=== PATIENT | female | born 1935 | race Caucasian/White ===

== ENCOUNTER 2019-03-27 19:00 | Inpatient (IN) | payer MEDICARE, BC ==
[2019-03-27] MEDS ORDERED: Ondansetron PF 4 MG/2 ML Vial ONE (19:30)
[2019-03-27] MEDS ORDERED: Morphine 4 MG/ML VIAL ONE (19:30)
--- NOTE | 2019-03-27 19:52 | CT ---
CT BRAIN NONCONTRAST: DATE: 03/27/2019 HISTORY: 83-year-old female on anticoagulation therapy status post acute head trauma from fall. FINDINGS: There is no evidence of acute intra-axial or extra-axial hemorrhage. There is no midline shift or any other mass effect. There is no extra-axial fluid collection. There is no evidence of obstructive hydrocephalus. Calvarium is intact. There is diffuse brain parenchymal volume loss. There are low att enuation areas in the white matter. These are nonspecific, but in a patient of this age, they are probably chronic ischemic white matter changes due to microvascular atherosclerosis. Small old infarc tion of posterior aspect of right cerebellum. Smaller, tiny infarction, probably old, of contralateral left posterior inferior cerebellum. IMPRESSION: 1) No acute intracranial findings. 2) involutional changes and chronic ischemic white matter changes. 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
--- NOTE | 2019-03-27 19:56 | RAD ---
Radiograph left hip 2 views: DATE: 03/27/2019 Time: 7:42 PM HISTORY: 83-year-old female with traumatic left hip pain due to fall. FINDINGS: There is a subcapital left femoral neck fracture with superior lateral displacement of distal fragmen t. No dislocation. IMPRESSION: Acute, traumatic, displaced subcapital left femoral neck fracture.
[2019-03-27 20:07] LABS: #Basophils 0.1 thou/uL (0.0-0.2); #Eosinphils 0.1 thou/uL (0.0-0.7); #Lymphocytes 1.2 thou/uL (1.20-3.40); #Monocytes 0.7 thou/uL (0.11-0.59); #Neutrophils 8.3 thou/uL (1.40-6.50); %Basophils 0.7 % (0.0-1.0); %Eosinophils 0.5 % (0.0-10.0); %Lymphocytes 11.5 % (21.0-51.0); %Monocytes 6.4 % (0.0-10.0); %Neutrophils 80.9 % (42.0-75.0); Hemoglobin 12.1 g/dL (12.0-16.0); Mean Corpuscular HGB CONC 33.7 g/dL (32.0-36.0); Mean Corpuscular Hemoglobin 33.6 pg (27.0-31.0); Mean Corpuscular Volume 99.7 fL (78.0-98.0); Mean Platelet Volume 6.1 fL (7.4-10.4); Platelet Count 247 thou/uL (130-400); RBC Distribution Width 11.4 % (11.5-14.5); Red Blood Cell (RBC) Count 3.61 mill/uL (4.20-5.40); White Blood Cell (WBC) Count 10.2 thou/uL (4.8-10.8)
[2019-03-27] MEDS ORDERED: Fentanyl 100 MCG/2 ML VIAL ONE (20:16)
[2019-03-27 20:21] LABS: INR-International Normal Ratio 1.2; Prothrombin Time 15.6 SEC (12.0-14.7)
[2019-03-27 20:30] LABS: ALT (SGPT) 16 U/L (8-55); AST (SGOT) 24 U/L (5-34); Albumin 4.5 g/dL (3.4-4.8); Alkaline Phosphatase 54 U/L (40-150); Anion Gap 18 mmol/L (10-20); BUN (Urea Nitrogen) 36 mg/dL (9.8-20.1); Bilirubin, Total 0.4 mg/dL (0.2-1.2); Calc. Creatinine Clearance 0 mL/min (70-130); Calcium 9.8 mg/dL (7.8-10.44); Carbon Dioxide 22 mmol/L (23-31); Chloride 98 mmol/L (98-107); Estimated GFR-MDRD 37; Globulin 2.7 g/dL (2.4-3.5); Glucose 128 mg/dL (83-110); Potassium 4.4 mmol/L (3.5-5.1); Protein, Total 7.2 g/dL (6.0-8.3); Sodium 134 mmol/L (136-145)
[2019-03-27] MEDS ORDERED: HYDROmorphone 0.5 MG/0.5 ML SYRINGE ONE (20:45)
[2019-03-27] MEDS ORDERED: Ondansetron PF 4 MG/2 ML Vial IVP PRN (22:40)
[2019-03-27] MEDS ORDERED: hydrALAZINE 20 MG/ML VIAL SLOW IVP PRN (22:40)
[2019-03-27] MEDS ORDERED: Dextrose 50% Abboject 50 ML SYRINGE SLOW IVP PRN (22:40)
[2019-03-27] MEDS ORDERED: traMADol HCl 50 MG TAB PO PRN (22:40)
[2019-03-27] MEDS ORDERED: Ondansetron ODT 4 MG TAB PO PRN (22:40)
[2019-03-27] MEDS ORDERED: Dextrose 5% in Water 1,000 ML IV PRN (22:40)
[2019-03-27] MEDS ORDERED: Ketorolac Tromethamine 30 MG/ML VIAL IVP SCH (22:45)
--- NOTE | 2019-03-27 22:59 | HP ---
This is Chato Gunderson PA-C dictating a report for Bulmaro Jordan MD. ATTENDING SURGEON: Dr. Jordan. CONSULTATIONS: Orthopedics, Dr. Walker. HISTORY OF PRESENT ILLNESS: Patient is an 83-year-old woman, who was reportedly on her back porch when she stepped off it, lost her balance and landed on her left hip. Patient was able to summon help after short period of time and was eventually brought to the emergency department by ground EMS, where she underwent evaluation and on examination, was noted to have a left subcapital hip fracture, at which time we were asked to evaluate the patient for admission and obtain Orthopedic consultation. Per the patient's request, she is a known patient of Dr. Walker and he was requested and agreed to see the patient in consultation. Patient denied loss of consciousness or any syncopal events related to her fall. ALLERGIES: SULFA. PATIENT REPORTEDLY BREAKS OUT IN HIVES. CURRENT MEDICATIONS: 1. Diltiazem. 2. Furosemide. 3. [place] 7.5. 4. Lisinopril. 5. Multivitamin. 6. Eliquis. PAST MEDICAL HISTORY: Atrial fibrillation and hypertension. PAST SURGICAL HISTORY: Right knee replacement and back surgery. SOCIAL HISTORY: Patient denies drug, tobacco, or alcohol use. Lives independently at home alone. REVIEW OF SYSTEMS: A 10-point review of systems is negative, except as otherwise stated. PHYSICAL EXAMINATION: VITAL SIGNS: Blood pressure 172/99, heart rate 115, respirations 20, oxygen saturation 94% on 1 L via nasal cannula, and temperature is 99.2. GENERAL: The patient is resting comfortably in bed. She is awake, alert, and oriented x3. Suzanne Coma Scale is 15. HEENT: Head is normocephalic and atraumatic. Eyes, extraocular motion intact. PERRLA bilaterally. Ears are atraumatic without discharge. Nose is atraumatic without discharge. Oropharynx is clear. NECK: Nontender. Trachea is midline. CHEST: Clear to auscultation with good inspiratory and expiratory effort. HEART: Regular rate and rhythm. ABDOMEN: Soft, flat, and nontender with active bowel sounds. PELVIS: Stable with tenderness to palpation to the left hip consistent with her fracture. EXTREMITIES: Neurovascularly intact x4. LABORATORY FINDINGS: White blood cell count 10.2, hemoglobin 12.1, hematocrit 36.0, and platelets . Sodium 134, potassium 4.4, chloride 98, CO2 of 22, BUN 36, creatinine 1.35, and glucose 128. LFTs are unremarkable. PT 15.6 and INR 1.2. RADIOGRAPHIC REPORTS: CT of the brain without contrast shows no acute intracranial findings. Radiographs of the left hip show an acute traumatic displaced subcapital left femoral neck fracture. ASSESSMENT AND PLAN: 1. Status post ground level fall. 2. Left subcapital femoral neck fracture. 3. Acute pain secondary to above. 4. Hypertension. 5. History of atrial fibrillation, on Eliquis. PLAN: Will be to hold the patient's Eliquis. Make her n.p.o. after midnight. Admitted to the surgical floor for pain control; pulmonary toilet; gastritis, mechanical VTE prophylaxis. Postoperatively, we will do physical and occupational therapy and discuss likely rehab placement. The evaluation, examination, laboratory, and radiographic findings were discussed with Dr. Jordan in the emergency department. Job ID: [id number]
[2019-03-27] MEDS ORDERED: Famotidine 20 MG TAB PO SCH (23:00)
[2019-03-27] MEDS: Sodium Chloride 0.9% 1,000 ML IV SCH (23:17)
[2019-03-27] MEDS: Acetaminophen 1,000 MG in Premix Bag 1 BAG IVPB SCH (23:18)
[2019-03-27] MEDS: Cyclobenzaprine 10 MG TAB PO PRN (23:18)
[2019-03-28 00:26] LABS: Bilirubin Negative (Negative); Blood, Urine Large (Negative); Clarity CLEAR (Clear); Glucose, Urine (Dipstick) Negative (Negative); Leukocyte Negative (Negative); Nitrite Negative (Negative); Protein, Urine (Dipstick) Trace mg/dL (Neg-Trace); Specific Gravity, Urine 1.008 (1.002-1.036); Urobilinogen 0.2 mg/dL (0.2-1.0)
[2019-03-28 00:29] LABS: Bacteria/HPF None Seen HPF (None Seen); Hyaline Casts/LPF 0-3 HYALINE CAST LPF (0-3 Hyaline); Pathc Cast-AUWi Flag 0.13 (0-2.49); RBC/HPF GREATER THAN 50-TNTC HPF (0-3); Squamous Epithelial None Seen HPF (0-3); WBC/HPF 0-3 HPF (0-3)
[2019-03-28 00:34] LABS: Urine Culture Reflex No No
[2019-03-28 01:17] VITALS: BMI 27.3
[2019-03-28] MEDS: Morphine 2 MG/ML SYRINGE SLOW IVP PRN ×2 (02:05→04:40)
[2019-03-28 05:59] LABS: #Eosinphils 0.1 thou/uL (0.0-0.7); #Monocytes 0.7 thou/uL (0.11-0.59); #Neutrophils 8.8 thou/uL (1.40-6.50); %Basophils 0.5 % (0.0-1.0); %Eosinophils 0.7 % (0.0-10.0); %Lymphocytes 9.6 % (21.0-51.0); %Neutrophils 82.3 % (42.0-75.0); Mean Corpuscular HGB CONC 33.8 g/dL (32.0-36.0); Mean Platelet Volume 6.3 fL (7.4-10.4); Platelet Count 217 thou/uL (130-400); RBC Distribution Width 11.4 % (11.5-14.5); Red Blood Cell (RBC) Count 3.25 mill/uL (4.20-5.40); White Blood Cell (WBC) Count 10.6 thou/uL (4.8-10.8)
[2019-03-28 06:23] LABS: Anion Gap 12 mmol/L (10-20); BUN (Urea Nitrogen) 28 mg/dL (9.8-20.1); Calc. Creatinine Clearance 44 mL/min (70-130); Calcium 8.5 mg/dL (7.8-10.44); Carbon Dioxide 24 mmol/L (23-31); Chloride 103 mmol/L (98-107); Estimated GFR-MDRD 48; Glucose 102 mg/dL (83-110); Magnesium 1.9 mg/dL (1.6-2.6); Phosphorus 3.8 mg/dL (2.3-4.7); Potassium 4.3 mmol/L (3.5-5.1); Sodium 135 mmol/L (136-145)
[2019-03-28] MEDS: Ketorolac Tromethamine 30 MG/ML VIAL IVP SCH ×2 (07:16→14:52)
[2019-03-28] MEDS: Sodium Chloride 0.9% 1,000 ML IV SCH ×2 (08:01→14:54)
[2019-03-28] MEDS: Acetaminophen 1,000 MG in Premix Bag 1 BAG IVPB SCH ×3 (08:01→17:50)
[2019-03-28] MEDS ORDERED: Fentanyl 100 MCG/2 ML VIAL ONE (08:03)
[2019-03-28] MEDS ORDERED: Fleet Enema 133 ML BOT PR PRN (09:19)
[2019-03-28] MEDS ORDERED: Cepastat Lozenges 1 LOZ PO PRN (09:19)
[2019-03-28] MEDS ORDERED: Ondansetron ODT 4 MG TAB PO PRN (09:19)
[2019-03-28] MEDS ORDERED: Bisacodyl 10 MG SUPP PR PRN (09:19)
[2019-03-28] MEDS ORDERED: Milk Of Magnesia 30 ML UDCUP PO PRN (09:19)
[2019-03-28] MEDS ORDERED: Ondansetron PF 4 MG/2 ML Vial IVP PRN (09:19)
[2019-03-28] MEDS ORDERED: HYDROcodone/Acetaminophen 7.5/325 mg Tablet PO PRN (09:21)
[2019-03-28] MEDS ORDERED: Bupivacaine HCl 0.5%/Epinephrine 1:200,000/PF 30 ml Vial ONE (09:42)
[2019-03-28] MEDS ORDERED: Neomycin-Polymyxin 1 ML AMP ONE (10:15)
[2019-03-28] MEDS ORDERED: Rocuronium Bromide 10 MG/ML (10ML VIAL) ONE (10:24)
[2019-03-28] MEDS ORDERED: Glycopyrrolate 0.2 MG/ML 5 ML SYRINGE ONE (10:24)
[2019-03-28] MEDS ORDERED: Ondansetron PF 4 MG/2 ML Vial ONE (10:24)
[2019-03-28] MEDS ORDERED: PROPOFOL 200 MG/20 ML VIAL ONE (10:24)
[2019-03-28] MEDS ORDERED: Promethazine HCl 25 MG/ML VIAL SLOW IVP PRN (11:18)
[2019-03-28] MEDS ORDERED: Morphine Sulfate 2 MG/ML SYRINGE SLOW IVP PRN (11:18)
[2019-03-28] MEDS ORDERED: Ondansetron HCl/PF 4 MG/2 ML Vial IVP PRN (11:18)
[2019-03-28] MEDS ORDERED: Promethazine HCl 25 MG/ML VIAL IM PRN (11:18)
[2019-03-28] MEDS ORDERED: Promethazine HCl 25 MG/ML VIAL ONE (11:23)
--- NOTE | 2019-03-28 12:00 | RAD ---
XR Hip Lt 2-3 View History: [Hip replacement] Comparison: Radiographs prior day Findings: Satisfactory appearance left hip arthroplasty. Expected postoperative gas and edema. Impression: Satisfactory postoperative appearance.
--- NOTE | 2019-03-28 15:11 | CON ---
DATE OF CONSULTATION: 03/28/2019 HISTORY OF PRESENT ILLNESS: Ms. Morales is an 83-year-old white female, who is a little over six weeks status post left ankle fracture. She was at home, she stepped off her back porch, lost her balance, landed on her left hip, had immediate pain in the left hip region, was unable to ambulate. She was brought to the emergency room by ambulance. X-rays revealed a displaced subcapital femoral neck fracture of the left hip. The patient has no neurologic complaints in her left lower extremity. No other complaints elsewhere. PAST MEDICAL HISTORY: Medical illnesses; atrial fibrillation and hypertension. CURRENT MEDICATIONS: 1. Eliquis. 2. Multivitamins. 3. Lisinopril. 4. Lasix. 5. Diltiazem. 6. [place] 7.5. ALLERGIES: TO SULFA. PAST SURGICAL HISTORY: Right total knee replacement and back surgery. SOCIAL HISTORY: The patient lives at home independently. She does not use tobacco or alcohol. PHYSICAL EXAMINATION: GENERAL: The patient is a very pleasant female, alert and oriented x3. VITAL SIGNS: The patient is afebrile. Blood pressure 152/88, respiratory rate 18, and heart rate 106. HEENT: Unremarkable for age. Cranial nerves 2 through 12 are grossly intact. NECK: Has good range of motion without pain. BACK: Thoracic and lumbar spine are nontender to palpation. LUNGS: Clear bilaterally. HEART: Regular rate and rhythm. ABDOMEN: Soft and nontender. Bowel sounds positive. : Not done. EXTREMITIES: Left lower extremity is short and externally rotated. The patient has good peripheral pulses. Able to flex and extend her left ankle and toes and has normal sensation. LABORATORY DATA: Shows white count of 8.2, hemoglobin 12.1. Chemistries are normal. PT is 15.6 with INR of 1.2. IMPRESSION: 1. Displaced subcapital femoral neck fracture of left hip. 2. History of atrial fibrillation. 3. Hypertension. PLAN: The patient will require a proximal femoral replacement. I will plan on using the bipolar prosthesis for the left hip. Potential risks with the condition of surgery include, but are not limited to infection, bleeding, pain, damage to blood vessels and nerves, loosening or instability of the prosthesis. The patient may require additional surgery, DVT, and PE formation. The patient's questions were answered and agreed to the procedure. Job ID: [id number]
[2019-03-28] MEDS: CEFAZOLIN 2 GM in Premix Bag 1 BAG IVPB SCH (17:07)
--- NOTE | 2019-03-28 17:44 | OP ---
DATE OF PROCEDURE: 03/28/2019 PREOPERATIVE DIAGNOSIS: Displaced subcapital femoral neck fracture of the left hip. POSTOPERATIVE DIAGNOSIS: Displaced subcapital femoral neck fracture of the left hip. PROCEDURE PERFORMED: Left proximal femoral replacement utilizing a bipolar prosthesis. ANESTHESIA: General. DESCRIPTION OF PROCEDURE: The patient was given preoperative IV antibiotics, taken to the operating room, placed in supine position, satisfactory general anesthesia was performed. The patient was then placed in the right lateral decubitus position. All bony prominences were well padded. The left hip and lower extremity were sterilely prepped and draped in usual fashion. A longitudinal incision was made centered over the greater trochanter, approximately 5 inches in length. Anterior lateral approach was made to the hip joint. The anterior capsule was excised. The fracture was identified. Oscillating saw was used to cut more of the femoral neck and the head was removed and was measured as a size 50. The other fragments of bone were removed from the acetabulum, and the entire wound was copiously irrigated with antibiotic solution using the high-speed carpentry professional. The proximal femur was then addressed first with a box osteotome, then a hand Charnley reamer and then it was sequentially hand reamed up to a 12 mm and then it was rasped up to a 12 mm. Trials were inserted, and the neutral neck with a 28 mm head and a 50 mm bipolar trial was inserted and had good moravian of leg length and good range of motion with good stability. The trial was removed. The wound again was copiously irrigated with the high-speed carpentry professional, and then the prosthesis was inserted, it was DonJoy, size 12 mm stem with a collar. The neutral neck with a 28 mm femoral head was impacted over the Gavin taper and then a 50 mm bipolar was locked into the femoral head, it was then reduced and again noted to have good stability with good range of motion. The wound again was irrigated and then closed using #2 Vicryl for the anterior fibers of the adductor muscle, #2 Vicryl for the iliotibial band, 0 Vicryl for the fat and subcutaneous tissue, and skin was closed with skin dora. 30 mL of 0.5% Marcaine with epinephrine was injected around the incision and hip joint. Sterile dressing was applied. The patient was then awakened, extubated, and transferred to recovery room in stable condition. ESTIMATED BLOOD LOSS: 300 mL. COMPLICATIONS: None. Job ID: [id number]
[2019-03-28] MEDS: Senokot S 8.6-50 MG TAB PO SCH (20:26)
[2019-03-28] MEDS: Famotidine 20 MG TAB PO SCH (20:27)
[2019-03-28] MEDS: Ferrous Gluconate 324 MG TAB PO SCH (20:27)
[2019-03-29] MEDS: CEFAZOLIN 2 GM in Premix Bag 1 BAG IVPB SCH (00:53)
[2019-03-29 04:49] LABS: Hemoglobin 9.6 g/dL (12.0-16.0); Mean Corpuscular HGB CONC 33.1 g/dL (32.0-36.0); Mean Corpuscular Hemoglobin 33.8 pg (27.0-31.0); Mean Platelet Volume 6.5 fL (7.4-10.4); Platelet Count 181 thou/uL (130-400); RBC Distribution Width 11.5 % (11.5-14.5); Red Blood Cell (RBC) Count 2.83 mill/uL (4.20-5.40); White Blood Cell (WBC) Count 10.3 thou/uL (4.8-10.8)
[2019-03-29 05:17] LABS: Anion Gap 12 mmol/L (10-20); BUN (Urea Nitrogen) 31 mg/dL (9.8-20.1); Calc. Creatinine Clearance 28 mL/min (70-130); Calcium 8.1 mg/dL (7.8-10.44); Carbon Dioxide 23 mmol/L (23-31); Chloride 105 mmol/L (98-107); Estimated GFR-MDRD 28; Glucose 132 mg/dL (83-110); Potassium 4.7 mmol/L (3.5-5.1); Sodium 135 mmol/L (136-145)
[2019-03-29] MEDS ORDERED: Sodium Chloride 0.9% 500 ML IV SCH (06:15)
[2019-03-29] MEDS: Apixaban 5 MG TAB PO SCH (08:21)
[2019-03-29] MEDS: Ferrous Gluconate 324 MG TAB PO SCH ×2 (08:22→20:10)
[2019-03-29] MEDS: Lisinopril 10 MG TAB PO SCH (08:22)
[2019-03-29] MEDS: Multivitamin W/ Minerals 1 TAB PO SCH (08:22)
[2019-03-29] MEDS: Furosemide 20 MG TAB PO SCH (08:22)
[2019-03-29] MEDS: Senokot S 8.6-50 MG TAB PO SCH ×2 (08:22→20:11)
[2019-03-29] MEDS: Sodium Chloride 0.9% 1,000 ML IV SCH ×2 (08:30→16:29)
[2019-03-29] MEDS: Acetaminophen 500 MG TAB PO SCH ×5 (09:34→20:10)
[2019-03-29] MEDS: HYDROcodone/Acetaminophen 7.5/325 mg Tablet PO PRN ×2 (10:25→17:40)
--- NOTE | 2019-03-29 13:02 | OP ---
DATE OF PROCEDURE: 03/29/2019 SUBJECTIVE: Ms. Morales is 1 day status post bipolar prosthesis of the left hip. She has fair pain control. She has no neurologic complaints in the left lower extremity. OBJECTIVE: VITAL SIGNS: Maximum temperature is 99.7. Remaining vital signs are stable. The left hip dressing is clean and dry. The left lower extremity is neurovascularly intact. LABORATORY DATA: CBC shows hemoglobin of 9.6, hematocrit of 20.8. Creatinine is 1.72, BUN is 31. PLAN: The patient will be started on physical and occupational therapy. We will make sure she is well hydrated. Recheck hemoglobin, hematocrit, and chemistries tomorrow. Plan on discharge will be to go to [facility]. Job ID: [id number]
--- NOTE | 2019-03-29 15:05 | PRG ---
DATE OF SERVICE: 03/29/2019 SUBJECTIVE: The patient is hospital day 2, postop day 1, status post ground level fall, which she sustained a left hip fracture yesterday. She underwent hemiarthroplasty, which she tolerated well. Overnight, she had no issues. She is tolerating a diet this morning. Her pain is controlled. She is awaiting physical and occupational therapy. The patient did have a reported low urine output overnight. The family relates this likely to her sleeping most of the day after anesthesia and not drinking much water. OBJECTIVE: VITAL SIGNS: Temperature 99.7, heart rate 93, blood pressure 136/76, respirations 18, oxygen saturation 99% on 1 L via nasal cannula. GENERAL: The patient is awake, alert, conversant, appropriate. Suzanne Coma Scale is 15. HEENT: Unremarkable. LUNGS: Clear to auscultation with good inspiratory and expiratory effort. HEART: Regular rate and rhythm. ABDOMEN: Soft, flat, nontender with active bowel sounds. EXTREMITIES: Neurovascularly intact x4. Postop dressing is clean, dry, and intact. LABORATORY FINDINGS: White blood cell count 10.3, hemoglobin 9.6, hematocrit 28.9, platelets 181. Sodium 135, potassium 4.7, chloride 105, CO2 of 23, BUN 31, creatinine 1.72, glucose 132. IMAGING STUDIES: There are no radiographs reviewed this morning. ASSESSMENT: 1. Status post ground level fall. 2. Status post open reduction and internal fixation of left proximal femur fracture. PLAN: Plan will be to continue supportive care, physical and occupational therapy. We have given her a fluid bolus and resumed a rate of normal saline at 120 an hour, which has resulted in the patient returning to making approximately 50 mL of urine per hour. We will maintain her fluids overnight and recheck her labs in the morning. Job ID: [id number]
[2019-03-29] MEDS: Famotidine 20 MG TAB PO SCH (20:10)
[2019-03-30] MEDS: Sodium Chloride 0.9% 1,000 ML IV SCH ×3 (02:56→11:17)
[2019-03-30] MEDS: Acetaminophen 500 MG TAB PO SCH ×6 (04:21→19:45)
[2019-03-30] MEDS: traMADol HCl 50 MG TAB PO PRN ×2 (04:22→13:22)
[2019-03-30 05:00] LABS: #Basophils 0.1 thou/uL (0.0-0.2); #Eosinphils 0.4 thou/uL (0.0-0.7); #Monocytes 0.7 thou/uL (0.11-0.59); #Neutrophils 5.8 thou/uL (1.40-6.50); %Basophils 0.8 % (0.0-1.0); %Eosinophils 4.8 % (0.0-10.0); %Monocytes 8.3 % (0.0-10.0); %Neutrophils 73.1 % (42.0-75.0); Hemoglobin 8.7 g/dL (12.0-16.0); Mean Corpuscular HGB CONC 33.3 g/dL (32.0-36.0); Mean Corpuscular Hemoglobin 34.6 pg (27.0-31.0); Mean Platelet Volume 6.4 fL (7.4-10.4); Platelet Count 167 thou/uL (130-400); RBC Distribution Width 11.5 % (11.5-14.5); Red Blood Cell (RBC) Count 2.52 mill/uL (4.20-5.40); White Blood Cell (WBC) Count 7.9 thou/uL (4.8-10.8)
[2019-03-30 05:24] LABS: Anion Gap 9 mmol/L (10-20); BUN (Urea Nitrogen) 34 mg/dL (9.8-20.1); Calc. Creatinine Clearance 36 mL/min (70-130); Calcium 7.7 mg/dL (7.8-10.44); Carbon Dioxide 23 mmol/L (23-31); Chloride 106 mmol/L (98-107); Estimated GFR-MDRD 38; Glucose 123 mg/dL (83-110); Magnesium 1.8 mg/dL (1.6-2.6); Potassium 4.4 mmol/L (3.5-5.1); Sodium 134 mmol/L (136-145)
[2019-03-30 06:09] LABS: Phosphorus 2.8 mg/dL (2.3-4.7)
[2019-03-30] MEDS: HYDROcodone/Acetaminophen 7.5/325 mg Tablet PO PRN ×2 (08:53→15:42)
[2019-03-30] MEDS: Furosemide 20 MG TAB PO SCH (08:54)
[2019-03-30] MEDS: Lisinopril 10 MG TAB PO SCH (08:54)
[2019-03-30] MEDS: Ferrous Gluconate 324 MG TAB PO SCH ×2 (08:54→19:45)
[2019-03-30] MEDS: Multivitamin W/ Minerals 1 TAB PO SCH (08:54)
[2019-03-30] MEDS: Apixaban 5 MG TAB PO SCH (08:54)
[2019-03-30] MEDS: Senokot S 8.6-50 MG TAB PO SCH ×2 (08:54→19:44)
--- NOTE | 2019-03-30 10:57 | PRG ---
DATE OF SERVICE: 03/30/2019 SUBJECTIVE: Ms. Morales has no complaints today. Her pain is well controlled. She is tolerating a regular diet. Physical Therapy has worked with her once. PHYSICAL EXAMINATION: VITAL SIGNS: Her blood pressure is 170/83, her pulse is 80, and respirations 18. She is 98% on 2 L nasal cannula. CHEST: Clear. HEART: Regular rate and rhythm. ABDOMEN: Soft and nontender. EXTREMITIES: Pulses are intact without limb-threatening ischemia. ASSESSMENT: Status post left hip fracture repair, Dr. Walker. PLAN: PT, OT, placement in rehab. Job ID: [id number]
[2019-03-30] MEDS: Famotidine 20 MG TAB PO SCH (19:45)
[2019-03-31] MEDS: Acetaminophen 500 MG TAB PO SCH ×4 (00:08→12:10)
[2019-03-31] MEDS: Cyclobenzaprine 10 MG TAB PO PRN (01:02)
--- NOTE | 2019-03-31 03:26 | PRG ---
DATE OF SERVICE: 03/30/2019 SUBJECTIVE: Ms. Morales was able to get out of bed and sit in a chair for short period of time today. Her Booth catheter was removed, but the patient has not voided yet. The patient has no specific problems. OBJECTIVE: VITAL SIGNS: The patient has been afebrile. Blood pressure 170/83, pulse 80, respiratory rate 18. She has been taken off her oxygen. Incision on the lateral aspect of the left hip is healing well. She has usual amount of bruising and mild swelling. There is no erythema or drainage. Left lower extremity remains neurovascularly intact. LABORATORY DATA: White count 7.9, hemoglobin 8.7, hematocrit 26.3. Chemistry shows a creatinine of 1.34, which is less than yesterday's which is 1.72. Her BUN is 34. PLAN: The patient will continue with her physical therapy and occupational therapy. Plans are for her to go to rehab at discharge. Dressing was changed today. Job ID: [id number]
[2019-03-31] MEDS: HYDROcodone/Acetaminophen 7.5/325 mg Tablet PO PRN ×2 (05:32→12:10)
[2019-03-31] MEDS: Sodium Chloride 0.9% 1,000 ML IV SCH (05:33)
[2019-03-31 05:34] LABS: Hemoglobin 9.1 g/dL (12.0-16.0); Mean Corpuscular HGB CONC 33.5 g/dL (32.0-36.0); Mean Corpuscular Hemoglobin 34.4 pg (27.0-31.0); Mean Platelet Volume 6.6 fL (7.4-10.4); Platelet Count 200 thou/uL (130-400); RBC Distribution Width 11.5 % (11.5-14.5); Red Blood Cell (RBC) Count 2.64 mill/uL (4.20-5.40)
[2019-03-31 05:45] LABS: Anion Gap 12 mmol/L (10-20); BUN (Urea Nitrogen) 29 mg/dL (9.8-20.1); Calc. Creatinine Clearance 47 mL/min (70-130); Calcium 8.4 mg/dL (7.8-10.44); Carbon Dioxide 23 mmol/L (23-31); Chloride 105 mmol/L (98-107); Estimated GFR-MDRD 52; Glucose 132 mg/dL (83-110); Potassium 4.7 mmol/L (3.5-5.1); Sodium 135 mmol/L (136-145)
[2019-03-31] MEDS: Apixaban 5 MG TAB PO SCH (09:14)
[2019-03-31] MEDS: Ferrous Gluconate 324 MG TAB PO SCH (09:15)
[2019-03-31] MEDS: Multivitamin W/ Minerals 1 TAB PO SCH (09:16)
[2019-03-31] MEDS: Lisinopril 10 MG TAB PO SCH (09:16)
[2019-03-31] MEDS: Furosemide 20 MG TAB PO SCH (09:16)
[2019-03-31] MEDS: Senokot S 8.6-50 MG TAB PO SCH (09:17)
[2019-03-31 11:28] VITALS: BP 137/73; TEMP 98
--- NOTE | 2019-03-31 17:40 | DIS ---
DATE OF ADMISSION: 03/27/2019 DATE OF DISCHARGE: 03/31/2019 RESIDENT: Jacqueline Marmolejo, PGY-I CONSULTATIONS: None. PROCEDURES: 1. Brain CT, 03/27/2019, no acute intracranial findings involutional changes and chronic ischemia, white matter changes. Small old infarcts of bilateral posterior inferior cerebellar artery territories. 2. Hip x-ray, 03/27/2019, acute traumatic displaced subcapital left femoral neck fracture. 3. Hip x-ray 03/28/2019, satisfactory postop appearance. PRIMARY DIAGNOSES: 1. Status post ground level fall. 2. Left subcapital femoral neck fracture. SECONDARY DIAGNOSES: 1. Acute pain secondary to above. 2. Hypertension. 3. Atrial fibrillation, on anticoagulation with Eliquis. HISTORY OF PRESENT ILLNESS AND HOSPITAL COURSE: Ms. Morales is an 83-year-old female, who fell from her back porch and landed on her left hip, was found to have a left subcapital femoral neck fracture. She underwent hemiarthroplasty and tolerated it well. Worked with PT and OT. Pain was controlled with medications. Admission hemoglobin 12.1, 9.1 at discharge. She did have HOMER that resolved, discharge creatinine 1.02. The patient's Eliquis and resumed on 03/29/2019. DISCHARGE CONDITION: Stable. DISCHARGE INSTRUCTIONS: 1. Location: [facility]. 2. Diet: No restrictions. 3. Activity: As tolerated. PHYSICAL EXAMINATION: VITAL SIGNS: Blood pressure 148/73, temperature 98.2, pulse 78, respirations 15, SpO2 of 92% on room air. GENERAL: Alert and oriented, in no acute distress. NECK: Trachea midline. Supple. LUNGS: Clear to auscultation bilaterally. HEART: Regular rate and rhythm. ABDOMEN: Nondistended, nontender. EXTREMITIES: No gross deformities. Postop dressing clean, dry, and intact. Walks with a walker. DISCHARGE MEDICATIONS: 1. Eliquis 5 mg daily. 2. Tylenol 500 mg q.4 hours. 3. Dulcolax 10 mg daily p.r.n. 4. Cepastat lozenges q.2 hours p.r.n. 5. Flexeril 5 mg t.i.d. p.r.n. 6. Diltiazem 240 mg daily. 7. Lasix 20 mg daily. 8. Ferrous gluconate 324 mg b.i.d. 9. [place] 7.5/325 one tablet q.6 hours p.r.n. 10. Lisinopril 10 mg daily. 11. Milk of magnesia 30 mL daily p.r.n. 12. Multivitamin daily. 13. Senokot-S 8.6 mg/50 mg two tablets b.i.d. 14. Fleet enema 133 mL per rectum daily p.r.n. 15. Ultram 50 mg p.o. q.6 hours p.r.n. 16. Tramadol 100 mg p.o. q.6 hours p.r.n. FOLLOWUP APPOINTMENTS: 1. Follow up with PCP, Dr. Magallon within 10 days. 2. Follow up with Dr. Walker in his clinic. Please call for appointment. Job ID: [id number]
== END 2019-03-31 13:10 | DRG 470 ==
LOC: ERS 19:00 → SURG A 20:30
PROVIDERS: ADMIT Specialist; ATTEND Specialist
PROC: 0SRS0JZ Replacement of Left Hip Joint, Femoral Surface with Synthetic Substitute, Open Approach (ICD-10-PCS; principal; 2019-03-28)
DX: S72.012A Unspecified intracapsular fracture of left femur, initial encounter for closed fracture (principal); N17.9 Acute kidney failure, unspecified; I10 Essential (primary) hypertension; I48.91 Unspecified atrial fibrillation; Z96.651 Presence of right artificial knee joint; Z88.2 Allergy status to sulfonamides; W17.89XA Other fall from one level to another, initial encounter
CPT/HCPCS: 36415; 70450; 80048; 80053; 81001; 83735; 84100; 85025; 85027; 85610; 93005; 96374; 96375; G0390; J0131; J0670; J0690; J1170; J1885; J2270; J2405; J2550; J3010

== ENCOUNTER 2019-04-09 18:00 | Outpatient (CLI) | payer MEDICARE, BC ==
--- NOTE | 2019-04-09 18:53 | ULT ---
LEFT LOWER EXTREMITY VENOUS DUPLEX EXAM: 04/09/19 HISTORY: Left leg pain and swelling. This was discussed with the technologist. Initial films were inadvertently labeled right but this is all a left exam. Real time color Doppler evaluation was performed of the common femoral, superficial and profunda femo ral, saphenous, popliteal, and posterior tibial veins. This shows a patent deep venous system with no rmal compressibility and augmentation. IMPRESSION: No evidence of DVT of the left lower extremity. POS: OFF
== END 2019-04-09 18:01 | disposition home or self-care (01) ==
LOC: RAD 18:00
PROVIDERS: ATTEND Physical Medicine & Rehabilitation
DX: M79.662 Pain in left lower leg (principal)

== ENCOUNTER 2019-04-22 13:13 | Outpatient (CLI) | payer MEDICARE, BC ==
--- NOTE | 2019-04-22 14:48 | RAD ---
2 VIEWS CHEST: Date: 04/22/19 HISTORY: Edema. COMPARISON: 04/09/19. FINDINGS: There has been interval development of small to moderate size bilateral pleural effusions, greater on the right, with associated passive atelectasis. Superimposed infiltrates cannot be entirely excluded . Again noted is a calcified granuloma overlying the lateral right mid lung zone. The cardiac silhouette is obscured due to bilateral pleural effusions. Pulmonary vasculature is borde rline increased. Vertebroplasty changes involve a wedge-shaped compression fracture of the lower thoracic spine. Degen erative changes are noted in the spine. There is an exaggerated kyphosis of the thoracolumbar spine. IMPRESSION: 1. Interval development of small to moderate size bilateral pleural effusions with associated passiv e atelectasis. 2. Osteopenia. 3. Vertebroplasty changes involving a lower thoracic vertebral body with exaggerated kyphosis center ed at this level. POS: [facility]
== END 2019-04-22 13:14 | disposition home or self-care (01) ==
LOC: BICRAD 13:13
PROVIDERS: ATTEND Internal Medicine Cardiovascular Disease
DX: R60.9 Edema, unspecified (principal); J90 Pleural effusion, not elsewhere classified; M85.80 Other specified disorders of bone density and structure, unspecified site; J98.11 Atelectasis
CPT/HCPCS: 71046

== ENCOUNTER 2019-04-23 15:57 | Inpatient (IN) | payer MEDICARE, BC ==
[~2019-04-23 15:57] MED LIST: ISOVUE-370 76%-LOCM 1 ML ONE
[2019-04-23 16:33] LABS: #Eosinphils 0.2 thou/uL (0.0-0.7); #Lymphocytes 0.8 thou/uL (1.20-3.40); #Monocytes 0.9 thou/uL (0.11-0.59); #Neutrophils 6.2 thou/uL (1.40-6.50); %Basophils 0.6 % (0.0-1.0); %Eosinophils 2.9 % (0.0-10.0); %Lymphocytes 9.7 % (21.0-51.0); %Monocytes 10.7 % (0.0-10.0); %Neutrophils 76.1 % (42.0-75.0); Hemoglobin 9.1 g/dL (12.0-16.0); Mean Corpuscular HGB CONC 33.3 g/dL (32.0-36.0); Mean Corpuscular Hemoglobin 33.6 pg (27.0-31.0); Platelet Count 335 thou/uL (130-400); RBC Distribution Width 13.2 % (11.5-14.5); Red Blood Cell (RBC) Count 2.71 mill/uL (4.20-5.40); White Blood Cell (WBC) Count 8.2 thou/uL (4.8-10.8)
[2019-04-23 16:53] LABS: ALT (SGPT) 56 U/L (8-55); AST (SGOT) 58 U/L (5-34); Albumin 3.4 g/dL (3.4-4.8); Alkaline Phosphatase 91 U/L (40-150); Anion Gap 15 mmol/L (10-20); BUN (Urea Nitrogen) 19 mg/dL (9.8-20.1); Bilirubin, Total 0.5 mg/dL (0.2-1.2); CK (CPK) 118 U/L (29-168); Calc. Creatinine Clearance 0 mL/min (70-130); Calcium 8.4 mg/dL (7.8-10.44); Carbon Dioxide 22 mmol/L (23-31); Chloride 92 mmol/L (98-107); Estimated GFR-MDRD 47; Globulin 2.5 g/dL (2.4-3.5); Glucose 122 mg/dL (83-110); Potassium 4.1 mmol/L (3.5-5.1); Protein, Total 5.9 g/dL (6.0-8.3); Sodium 125 mmol/L (136-145)
--- NOTE | 2019-04-23 17:09 | RAD ---
Exam: Chest one view HISTORY:Dyspnea Comparison: 04/09/2019 FINDINGS: Cardiac silhouette: Cardiomegaly. Pulmonary vessels: Prominent Costophrenic angles: Interval development of left greater than right pleural effusions. LUNGS: Bilateral lower lobe opacification due to atelectasis, aspiration or pneumonia. Pneumothorax: None Osseous abnormalities: Stable vertebroplasty change IMPRESSION: 1. Congestive heart failure. Superimposed bibasilar aspiration or pneumonia cannot be excluded. 2. Continued surveillance.
[2019-04-23 17:16] LABS: CKMB 2.5 ng/mL (0-6.6)
[2019-04-23] MEDS ORDERED: Ondansetron PF 4 MG/2 ML Vial ONE (17:39)
--- NOTE | 2019-04-23 17:45 | CT ---
Exam: CT angiogram of the chest HISTORY: Increasing shortness of breath with exertion. COMPARISON: 03/22/2015 TECHNIQUE: CT angiogram of the chest is performed in the axial plane. Three-dimensional reformatted i mages are submitted for interpretation FINDINGS: Mediastinum: No mass, lymphadenopathy or hematoma. HEART: Cardiomegaly. Small amount of pericardial fluid. Aorta: Mild dilatation of the ascending thoracic aorta measuring 4.1 x 4.1 cm. Limited evaluation of the aortic arch and descending thoracic aorta/upper abdominal aorta due to inadequate contrast opacification. Upper solid abdominal viscera: Limited evaluation. Grossly no abnormality Trachea and central bronchi: Patent Pleural spaces and lungs: Moderate right and left pleural effusions with consolidation involving both lower lobes. Small air bronchograms are noted. Correlate for passive atelectasis, aspiration or pneumonia. Ground glass opacities in the superior segment of both lower lobes may represent edema or infiltrate. Additional patchy groundglass opacities are noted in both upper lobes. Lung parenchyma: As above Pneumothorax: None Osseous structures: Diffuse bone demineralization. Previous vertebral plasty change in the distal tho racic spine. Pulmonary arteries:Adequate contrast opacification of the pulmonary arterial system to the level of t he segmental arteries. No filling defect to suggest thromboembolism IMPRESSION: 1. No evidence of pulmonary artery embolism to the level of the segmental arteries 2. Bilateral pleural effusions with a lung parenchymal changes which may be due to atelectasis, pneum onia or aspiration. 3. Patchy groundglass opacities likely due to edema. Transcribed Date/Time: 04/23/2019 5:52 PM
[2019-04-23] MEDS ORDERED: Cefepime 2 GM VIAL ONE (18:31)
[2019-04-23] MEDS ORDERED: Furosemide 40 MG/4 ML VIAL ONE (18:31)
[2019-04-23 19:52] LABS: Troponin I Less than 0.010 ng/mL (< 0.028)
[2019-04-23] MEDS ORDERED: Ondansetron ODT 4 MG TAB PO PRN (20:33)
[2019-04-23] MEDS ORDERED: Ondansetron PF 4 MG/2 ML Vial IVP PRN (20:33)
[2019-04-23] MEDS ORDERED: Acetaminophen 650 MG Suppository PR PRN (20:33)
[2019-04-23] MEDS ORDERED: Acetaminophen 325 MG TAB PO PRN (20:33)
[2019-04-23 23:53] LABS: Troponin I 0.024 ng/mL (< 0.028)
[2019-04-24] MEDS: Diabetic Tussin 200 MG/10 ML UDCUP PO PRN ×2 (03:33→15:00)
[2019-04-24 06:17] LABS: #Basophils 0.1 thou/uL (0.0-0.2); #Eosinphils 0.3 thou/uL (0.0-0.7); #Lymphocytes 0.9 thou/uL (1.20-3.40); #Monocytes 0.8 thou/uL (0.11-0.59); #Neutrophils 4.7 thou/uL (1.40-6.50); %Eosinophils 4.3 % (0.0-10.0); %Lymphocytes 13.5 % (21.0-51.0); %Monocytes 11.8 % (0.0-10.0); %Neutrophils 69.4 % (42.0-75.0); Hemoglobin 8.5 g/dL (12.0-16.0); Mean Corpuscular HGB CONC 33.4 g/dL (32.0-36.0); Mean Corpuscular Hemoglobin 33.9 pg (27.0-31.0); Mean Platelet Volume 5.9 fL (7.4-10.4); Platelet Count 275 thou/uL (130-400); RBC Distribution Width 13.2 % (11.5-14.5); White Blood Cell (WBC) Count 6.7 thou/uL (4.8-10.8)
[2019-04-24 06:35] LABS: Anion Gap 12 mmol/L (10-20); BUN (Urea Nitrogen) 17 mg/dL (9.8-20.1); Calc. Creatinine Clearance 49 mL/min (70-130); Calcium 8.1 mg/dL (7.8-10.44); Carbon Dioxide 26 mmol/L (23-31); Chloride 93 mmol/L (98-107); Estimated GFR-MDRD 49; Glucose 94 mg/dL (83-110); Potassium 3.6 mmol/L (3.5-5.1); Sodium 127 mmol/L (136-145)
--- NOTE | 2019-04-24 08:04 | HP ---
PRIMARY CARE DOCTOR: Kalpesh Magallon MD. CODE STATUS: Full code. TIME OF EVALUATION: 07:55 p.m. CHIEF COMPLAINT: Shortness of breath. HISTORY OF PRESENT ILLNESS: This is an 83-year-old female patient with past medical history of recent hip surgery on the left side, atrial fibrillation, on Eliquis, came to the hospital after having severe gradually worsening shortness of breath with no clear triggers, no alleviating factors. The patient has had recent hip surgery, has been sent for rehab and discharged home. She had been recovering very well and she is very functional. The patient has a history of going to the gym 3 times a week, very active and very sharp mentally, so all these symptoms feeling this week and the shortness of breath are new for the patient and has been getting to the point that she is unable to function at her baseline. The patient went to see Dr. Tom and she had been recommended to come to the hospital. The patient was found to be in fluid overload and also possible pneumonia/atelectasis when the CAT scan was seen. The patient has been started on treatment for possible pneumonia and also diuresis, we will continue for now. We will rule out infection in the next coming hours with cultures and procalcitonin, and then we will adjust the treatment depending on the patient's progress. The patient's saturation also was found to be in the 90s and 88, thus needing nasal cannula oxygen support to keep saturation above 90. REVIEW OF SYSTEMS: CONSTITUTIONAL: The patient has no fever. The patient has no chills. The patient does have severe generalized weakness. RESPIRATORY: The patient has cough, scant sputum production with whitish phlegm, shortness of breath. CARDIOVASCULAR: No chest pain or palpitation. GASTROINTESTINAL: No nausea, vomiting, diarrhea, or abdominal pain. FLIGHT ENGINEER INSPECTOR: No dizziness, headache, or feeling lightheaded. GENITOURINARY: No burning on urination. EXTREMITIES: Bilateral leg swelling. All other systems were reviewed and negative except for the findings mentioned above. PAST MEDICAL HISTORY: The patient has a history of atrial fibrillation, possible underlying CHF due to fluid retention. PAST SURGICAL HISTORY: The patient has a history of partial left hip replacement, also left ankle surgery. SOCIAL HISTORY: No alcohol. No drugs. No smoking history. FAMILY HISTORY: Reviewed, noncontributory to current presentation. KNOWN ALLERGIES: Sulfa. REPORTED MEDICATIONS: 1. Diltiazem. 2. Furosemide. 3. Eliquis. PHYSICAL EXAMINATION: VITAL SIGNS: On presentation, temperature 98.4, oxygen saturation on room air was 88 to 90. During my examination, blood pressure 108/78 with heart rate 86, respiratory rate was 27. GENERAL APPEARANCE: The patient is alert, oriented, not in acute distress. HEENT: Eyes, normal conjunctivae. Moist oral mucosa. Anicteric. No JVD. RESPIRATORY: Bilateral air entry is decreased. The patient has bilateral rales. No wheezes. Symmetric expansion. CARDIOVASCULAR: The patient has normal rate, regular rhythm. No murmurs. No gallop. The patient has bilateral leg edema. ABDOMEN: Soft. Normal bowel sounds. MUSCULOSKELETAL: Baseline range of motion and strength. SKIN: Warm, intact. No pallor. No rash. No redness. Capillary refill seems to be intact. NEUROLOGIC: No evidence of any new focal weakness. Cranial nerves seem to be intact. PSYCH: The patient is in good mood. No anxiety. Optimal judgment. DIAGNOSTIC STUDIES: EKG; the patient has atrial fibrillation with controlled ventricular rate, at a rate of 76, QT corrected 416. CT chest was done that showed bilateral pleural effusion with no parenchymal changes, may be due to atelectasis, pneumonia or aspiration, patchy ground-glass opacities likely due to edema. LABORATORY DATA: Reviewed. The patient has white count 9.2, hemoglobin 9.1, MCV 101, platelet count 335. Coagulation; D-dimer 3.45. Chemistry; sodium 125, potassium 4.1, chloride 92, carbon dioxide 22, anion gap 15, BUN 19, creatinine 1.1, GFR 47, glucose 122, total bilirubin 0.5. LFTs; AST 50, ALT 56, alkaline phosphatase 91. CK 118. Beta-natriuretic peptide 706. Serum total protein 5.9. ASSESSMENT AND PLAN: The patient will be placed in the hospital with following medical problems: 1. Acute hypoxic respiratory failure. The patient needs oxygen support to keep saturation above 90. This could be secondary to underlying pneumonia/congestive heart failure. We will treat the underlying condition. Continue oxygen support. 2. Possible underlying congestive heart failure exacerbation. The patient has bilateral pleural effusion. The patient has body weight gain of 0 pounds since the last time she was weighed in the office. The patient also has bilateral leg edema. We will diurese with caution since there may be also possibility for sepsis. We will find the right fluid balance during the patient's stay depending on the patient's progress. We will do echo, we will consult Dr. Tom who has been following the patient as outpatient. 3. Possible underlying pneumonia. The patient has the findings on the CAT scan and the patient was hospitalized recently and that put her at risk for healthcare-associated pneumonia, plus respiratory symptoms. We will continue antibiotics, we will send procalcitonin, we will send cultures, we will rule out infection and treat accordingly. 4. History of atrial fibrillation. The patient is on chronic anticoagulation. We will continue for now and also this is controlled, chronic. 5. Chronic macrocytic anemia. The patient's hemoglobin is stable. We will monitor, we will treat accordingly. 6. Elevated D-dimer. This may be likely secondary to the use of chronic anticoagulation. There is no pulmonary embolism on the CT scan. 7. Hyponatremia with sodium 125, this is moderate. This may be dilutional from the underlying fluid overload and possible congestive heart failure. We will diurese the patient. We will monitor sodium. We will treat accordingly. 8. Hyperglycemia, 122. This is mild, no need for any acute intervention at this point. No history of diabetes reported. 9. Deep vein thrombosis prophylaxis. The patient is on chronic anticoagulation. Job ID: [id number]
[2019-04-24] MEDS ORDERED: traMADol HCl 50 MG TAB PO PRN (08:06)
[2019-04-24] MEDS ORDERED: Potassium Chloride 10 MEQ TAB PO SCH ×2 (09:00→17:00)
[2019-04-24] MEDS ORDERED: Acetaminophen ER (8hr) 650 MG TAB PO SCH (09:00)
[2019-04-24] MEDS ORDERED: Non-Formulary Item 1 EACH (Potassium Chloride [Potassium Chloride] 10 MEQ) PO SCH (09:00)
[2019-04-24] MEDS ORDERED: Lisinopril 10 MG TAB PO SCH (09:00)
[2019-04-24] MEDS ORDERED: Furosemide 40 MG/4 ML VIAL SLOW IVP SCH (09:00)
[2019-04-24] MEDS ORDERED: Apixaban 5 MG TAB PO SCH (09:00)
[2019-04-24] MEDS: Ferrous Gluconate 324 MG TAB PO SCH ×2 (09:04→20:31)
[2019-04-24] MEDS: Multivitamin W/ Minerals 1 TAB PO SCH (09:04)
[2019-04-24] MEDS: Lisinopril 5 MG TAB PO SCH (09:04)
[2019-04-24] MEDS: Polyethylene Glycol 3350 17 GM Packet PO SCH (09:05)
[2019-04-24] MEDS ORDERED: Albuterol Sulfate 2.5 mg/3 ml Neb NEB PRN (10:37)
[2019-04-24] MEDS ORDERED: guaiFENesin ER 600 MG TAB PO SCH (10:45)
[2019-04-24] MEDS ORDERED: Saccharomyces boulardii 250 MG CAP PO SCH (10:45)
[2019-04-24] MEDS: Ipratropium Bromide 2.5 ml Neb NEB SCH ×3 (11:17→18:25)
--- NOTE | 2019-04-24 12:19 | PRG ---
DATE OF SERVICE: 04/24/2019 SUBJECTIVE: An 83-year-old female with recent left hip surgery, presented to the hospital with shortness of breath. She is currently admitted for congestive heart failure exacerbation along with healthcare-associated pneumonia. She denies any new complaints at this time. She continues to feel generally weak and fatigued. No chest pain reported. REVIEW OF SYSTEMS: The patient is constipated. She denies any nausea or vomiting. No focal neurologic deficit. She continues to have bilateral lower extremity edema. All other review of systems was reviewed and were found negative. CURRENT MEDICATIONS: Reviewed. Eliquis was changed to twice a day after confirming with the patient and the family. She is on Cardizem, IV Lasix, lisinopril. Telemetry monitoring by my review showed atrial fibrillation. PHYSICAL EXAMINATION: VITAL SIGNS: Temperature 97.6, pulse 92, respirations are 20, blood pressure 128/65, O2 saturation 98% on 2 L nasal cannula. GENERAL: An 83-year-old female with generalized weakness. Mild shortness of breath at rest. HEENT: Head, atraumatic and normocephalic. Sclerae anicteric. NECK: Supple. No JVD appreciated. LUNGS: Showed rales at bilateral bases with rhonchi mainly at the right base. Minimal accessory muscle use. Lungs were symmetrical. No wheezing appreciated. HEART: S1 and S2 present. Irregularly irregular. No heaves or pulsation. 2/6 systolic murmur over the mitral area. ABDOMEN: Soft and nontender. Bowel sounds present. EXTREMITIES: Bilateral lower extremity swelling up to 3+. No calf tenderness. SKIN: Warm and dry. NEUROLOGIC: Grossly nonfocal. PSYCHIATRY: Normal affect. Alert, awake, and oriented x3. LABORATORY FINDINGS: Sodium improved to 127 from 125, potassium 3.6, chloride 93, bicarb 26, BUN 17, creatinine 1.06. Serum osmolality 270. Troponin 0.030. Repeat troponin was negative. Blood cultures so far negative. CT angiogram of the chest by my review showed bilateral pleural effusion with suspected pneumonia. Chest x-ray by my review showed findings consistent with congestive heart failure. IMPRESSION: 1. Acute hypoxic respiratory failure secondary to congestive heart failure exacerbation along with suspected pneumonia. 2. Acute congestive heart failure exacerbation, ejection fraction unknown. 3. Suspected healthcare-associated pneumonia, questionable pneumococcal. 4. Chronic atrial fibrillation, on chronic anticoagulation. 5. Chronic anemia. 6. Hypotonic hyponatremia. 7. Type 2 myocardial infarction/demand ischemia. 8. Chronic kidney disease stage 3. 9. Macrocytosis. 10. Recent left hip surgery. 11. Hypertension. 12. Constipation. PLAN: We will continue telemetry monitoring. We will continue IV Lasix. Cardiology has been consulted. We will await echocardiogram. Continue CHICHI inhibitor. Continue empiric antibiotics for possible pneumonia. We will repeat chest x-ray in a.m. Consult Physical Therapy. Add nebulizer treatment. We will correct Eliquis dose to 5 mg twice a day from once a day. I verified with the patient. We will add folic acid, vitamin B12 and multivitamin due to Macrocytosis. We will recheck labs in a.m. We will increase potassium supplementation to 10 mEq b.i.d. while on IV Lasix. The patient was advised to restrict her fluid to less than 2 L a day. Repeat Chest X-ray in AM Plan was discussed with the patient and the daughter at the bedside. They stated understanding. Job ID: [id number] MTDD
[2019-04-24] MEDS: Furosemide 40 MG/4 ML VIAL SLOW IVP SCH (15:00)
[2019-04-24] MEDS: Cefepime 2 GM in Sodium Chloride 0.9% 100 ML IVPB SCH (17:39)
[2019-04-24] MEDS: Potassium Chloride 10 MEQ TAB PO SCH (17:42)
[2019-04-24] MEDS ORDERED: Vancomycin HCl 1 GM in Premix Bag 1 BAG IVPB SCH (20:00)
[2019-04-24] MEDS: Apixaban 5 MG TAB PO SCH (20:31)
[2019-04-24] MEDS: guaiFENesin ER 600 MG TAB PO SCH (20:31)
[2019-04-24] MEDS: Senokot S 8.6-50 MG TAB PO SCH (20:31)
[2019-04-25] MEDS: Furosemide 40 MG/4 ML VIAL SLOW IVP SCH ×2 (05:54→14:14)
[2019-04-25] MEDS: Ipratropium Bromide 2.5 ml Neb NEB SCH ×4 (06:36→19:41)
[2019-04-25 06:42] LABS: #Basophils 0.1 thou/uL (0.0-0.2); #Eosinphils 0.4 thou/uL (0.0-0.7); #Lymphocytes 0.8 thou/uL (1.20-3.40); #Neutrophils 4.7 thou/uL (1.40-6.50); %Eosinophils 5.1 % (0.0-10.0); %Lymphocytes 11.8 % (21.0-51.0); %Monocytes 14.2 % (0.0-10.0); %Neutrophils 67.9 % (42.0-75.0); Hemoglobin 8.4 g/dL (12.0-16.0); Mean Corpuscular HGB CONC 33.2 g/dL (32.0-36.0); Mean Corpuscular Hemoglobin 34.1 pg (27.0-31.0); Mean Platelet Volume 5.9 fL (7.4-10.4); Platelet Count 263 thou/uL (130-400); RBC Distribution Width 13.5 % (11.5-14.5); Red Blood Cell (RBC) Count 2.46 mill/uL (4.20-5.40); White Blood Cell (WBC) Count 6.9 thou/uL (4.8-10.8)
[2019-04-25 07:07] LABS: ALT (SGPT) 40 U/L (8-55); AST (SGOT) 39 U/L (5-34); Albumin 2.9 g/dL (3.4-4.8); Alkaline Phosphatase 70 U/L (40-150); Anion Gap 11 mmol/L (10-20); BUN (Urea Nitrogen) 19 mg/dL (9.8-20.1); Bilirubin, Total 0.4 mg/dL (0.2-1.2); Calc. Creatinine Clearance 48 mL/min (70-130); Calcium 8.5 mg/dL (7.8-10.44); Carbon Dioxide 29 mmol/L (23-31); Chloride 97 mmol/L (98-107); Estimated GFR-MDRD 52; Globulin 2.2 g/dL (2.4-3.5); Glucose 89 mg/dL (83-110); Magnesium 1.8 mg/dL (1.6-2.6); Potassium 3.8 mmol/L (3.5-5.1); Protein, Total 5.1 g/dL (6.0-8.3); Sodium 133 mmol/L (136-145)
[2019-04-25] MEDS: Potassium Chloride 10 MEQ TAB PO SCH ×2 (08:53→16:34)
[2019-04-25] MEDS: Senokot S 8.6-50 MG TAB PO SCH ×2 (08:54→21:13)
[2019-04-25] MEDS: Apixaban 5 MG TAB PO SCH ×2 (08:54→21:12)
[2019-04-25] MEDS: Saccharomyces boulardii 250 MG CAP PO SCH (08:54)
[2019-04-25] MEDS: Lisinopril 5 MG TAB PO SCH (08:54)
[2019-04-25] MEDS: Ferrous Gluconate 324 MG TAB PO SCH ×2 (08:55→21:13)
[2019-04-25] MEDS: Cyanocobalamin (Vitamin B-12) 1,000 MCG TAB PO SCH (08:55)
[2019-04-25] MEDS: guaiFENesin ER 600 MG TAB PO SCH ×2 (08:55→21:13)
[2019-04-25] MEDS: Polyethylene Glycol 3350 17 GM Packet PO SCH (08:55)
[2019-04-25] MEDS: Folic Acid 1 MG TAB PO SCH (08:55)
[2019-04-25] MEDS ORDERED: Multivit, Therapeutic 1 TAB PO SCH (09:00)
--- NOTE | 2019-04-25 12:40 | RAD ---
XR Chest Pa Lat STANDARD History: Pneumonia Comparison: Radiograph April 22, 2019 Findings: Similar appearance large bilateral effusions, larger on the right. Calcified granuloma righ t upper lobe. Cement within the lower thoracic spine compression fracture. Heart size is enlarged. Ascending aorta is ectatic. Impression: Similar appearance of the chest.
--- NOTE | 2019-04-25 13:23 | CON ---
DATE OF CONSULTATION: HISTORY OF PRESENT ILLNESS: The patient is an 83-year-old woman, who presents for evaluation of dyspnea. The patient has a history of chronic atrial fibrillation. She was recently hospitalized with a hip surgery. Since surgery, she has developed progressive edema and dyspnea. She saw Dr. Tom recently, who started her on Lasix. The patient presented to the emergency room with marked dyspnea. The patient denied having any chest discomfort. PAST MEDICAL HISTORY: Significant for, 1. Atrial fibrillation. 2. Hypertension. PAST SURGICAL HISTORY: Hip surgery, knee surgery. SOCIAL HISTORY: She is a nonsmoker. FAMILY HISTORY: No strong family history of heart disease. She is allergic to sulfa. REVIEW OF SYSTEMS: Notable for persistent cough. Ten-point system otherwise unremarkable. PHYSICAL EXAMINATION: GENERAL: Elderly woman in mild distress. VITAL SIGNS: Blood pressure of 128/72. NECK: Showed no jugular venous distention. LUNGS: Lungs have crackles throughout both lung waite. HEART: Irregular rate and rhythm. Normal S1 and S2 with a 1/6 systolic murmur. ABDOMEN: Distended. EXTREMITIES: Showed moderate bilateral edema. VASCULAR: Radial pulses are 2+. LABORATORY RESULTS: Sodium 133, potassium 3.8, chloride 97, bicarbonate 29, BUN 19, creatinine 0.10, glucose 89. White blood cell count 6.9, hemoglobin 8.4, hematocrit 25.3, and platelets 263. IMAGING STUDIES: Her EKG revealed her to have atrial fibrillation, otherwise normal ECG. IMPRESSION: 1. Congestive heart failure, diastolic. 2. Permanent atrial fibrillation. 3. Large pleural effusion. 4. Status post hip surgery. This patient presents with congestive heart failure, probably secondary to diastolic dysfunction. Her chest x-ray and echo revealed a large pleural effusion. We will ask Pulmonary whether the patient might benefit from a thoracentesis. The patient is being diuresed. With the patient's persistent cough, we will discontinue her lisinopril. We will follow this patient with you through her hospitalization. Job ID: [id number]
--- NOTE | 2019-04-25 14:14 | PDOC.EVN ---
Event Note - Event Note Event Note: Patient's heart rate is 110's. She has a hx of afib. EKG performed. Reveals sinus tach but with inferolateral ST depression. This is new compared to admission ekg. Patient absolutely denies any CP or pressure and SOB. Suspect this anemia related ischemia. Concerned that she have spontaneous occult bleeding. Will repeat a stat H/H. Blood is ready to be started. She is not a candidate for intervention or aspirin. Has oxygen ordered. SBP normal. Will give nitropaste 0.5" and give the blood. Will repeat EKG after the blood is in.
[2019-04-25] MEDS ORDERED: Morphine 4 MG/ML VIAL SLOW IVP SCH (14:15)
[2019-04-25 14:32] LABS: Fluid, pH - Pleural Fld 7.57 (7.60 - 7.66)
--- NOTE | 2019-04-25 14:33 | PDOC.PN ---
- Subjective Encounter Start Date: 04/25/19 Encounter Start Time: 14:31 Doing well. Tolerated the thoracentesis well. Has a little discomfort and persistence of cough. - Objective Resuscitation Status - Order Detail: 04/23/19 20:33 Resuscitation Status Routine Resuscitation Status: FULL: Full Resuscitation Vital Signs & Weight: Vital Signs (12 hours) Temp Pulse Resp BP BP Pulse Ox 04/25/19 11:55 98.3 F 109 H 20 124/70 97 04/25/19 10:37 88 16 04/25/19 07:55 98.3 F 88 18 128/72 94 L 04/25/19 06:36 98 16 04/25/19 04:00 97.8 F 111 H 22 H 116/72 94 L Weight Admit Weight 178 lb 3.2 oz Weight 165 lb 7 oz I&O: 04/24/19 04/25/19 04/26/19 06:59 06:59 06:59 Intake Total 120 1435 Output Total 2750 1900 Balance -2630 -465 Result Diagrams: 04/25/19 06:02 04/25/19 06:02 Phys Exam - Physical Examination Constitutional: NAD Respiratory: no wheezing, no rales, no rhonchi Still diminished in right base. Cardiovascular: RRR, no significant murmur Gastrointestinal: soft, non-tender, no distention, positive bowel sounds Trace edema L calf, but improved with wrinkled skin. No TTP. Psychiatric: normal affect, A&O x 3 Skin: no rash Dx/Plan (1) Acute respiratory failure with hypoxia Code(s): J96.01 - ACUTE RESPIRATORY FAILURE WITH HYPOXIA Status: Acute (2) Pleural effusion Code(s): J90 - PLEURAL EFFUSION, NOT ELSEWHERE CLASSIFIED Status: Acute (3) Acute systolic (congestive) heart failure Code(s): I50.21 - ACUTE SYSTOLIC (CONGESTIVE) HEART FAILURE Status: Acute (4) Atrial fibrillation Code(s): I48.91 - UNSPECIFIED ATRIAL FIBRILLATION Status: Acute (5) Anemia Code(s): D64.9 - ANEMIA, UNSPECIFIED Status: Acute (6) NSTEMI (non-ST elevated myocardial infarction) Code(s): I21.4 - NON-ST ELEVATION (NSTEMI) MYOCARDIAL INFARCTION Status: Acute Comment: Type II (7) CKD (chronic kidney disease), stage III Code(s): N18.3 - CHRONIC KIDNEY DISEASE, STAGE 3 (MODERATE) Status: Acute (8) HTN (hypertension) Code(s): I10 - ESSENTIAL (PRIMARY) HYPERTENSION Status: Acute (9) Mitral regurgitation Status: Acute - Plan * Continue IV abx. * S/P thoracentesis. Await results * Continue diuresis. * Resume ACEI as it is not likely the source of the cough at this point.
[2019-04-25 15:11] LABS: Pleural Fluid, Protein 1.8 g/dL
[2019-04-25] MEDS: Multivitamin W/ Minerals 1 TAB PO SCH (16:00)
[2019-04-25 16:16] LABS: BF Color Yellow; BF RBC Count - Manual 128 /cumm; BF WBC/Nonhematics Ct. - Manua 38 /cumm; Body Fluid Source Thoracentesis Fluid; Clarity Hazy (Clear); Tube # EDTA
[2019-04-25 16:18] LABS: BF Segmented Neutrophils 6 %; Cell Count Non Hematic 74 %; Lymphocytes 20 %
--- NOTE | 2019-04-25 16:47 | PRG ---
DATE OF SERVICE: 04/25/2019 Pleural fluid results have been reviewed. Protein is 1.8, LDH 127, glucose 116, pH 7.57. There were only 38 white cells, 128 red cells. This is clearly a transudate. I have ordered urinalysis to rule out proteinuria, but most likely this pleural effusion is related to mitral regurgitation. Job ID: [id number]
[2019-04-25] MEDS: Cefepime 2 GM in Sodium Chloride 0.9% 100 ML IVPB SCH (18:02)
--- NOTE | 2019-04-25 18:34 | CON ---
DATE OF CONSULTATION: 04/25/2019 HISTORY OF PRESENT ILLNESS: Ms. Morales is a very pleasant, sharp 83-year-old female. She says she was healthy until she fell and broke her ankle. After that, she fell and broke her hip and ended up being admitted to the hospital in March for repair of her hip fracture. She had a clear chest x-ray at that time. Chest x-rays done starting April 22 have shown bilateral pleural effusions, right greater than left. Echocardiogram shows moderate mitral regurgitation. I was consulted because of her effusions. PAST MEDICAL HISTORY: Remarkable for: 1. Atrial fibrillation. 2. History of hypertension. 3. History of right knee replacement. 4. History of back surgery. SOCIAL HISTORY: She is nonsmoker, nondrinker, and nonalcohol user. FAMILY HISTORY: Negative for lung disease in early age. MEDICATIONS: Have been reviewed. REVIEW OF SYSTEMS: Ten point review of systems completed, otherwise negative. Her only complaint is she just does not feel quite right. PHYSICAL EXAMINATION: GENERAL: Ms. Morales is a very pleasant, sharp 83-year-old female. VITAL SIGNS: She is afebrile. Heart rate is 88 to 109, respiratory rate in 16 to 20 range, oximetry is 94% to 97% on liter of the nasal cannula, and blood pressure 124/70. HEENT: Pupils are equal. Sclerae are anicteric. NECK: Supple. No lymphadenopathy. LUNGS: Remarkable for decreased breath sounds at the right base. HEART: Regular rhythm. S1 and S2 are normal. I do not hear her mitral regurgitation murmur. ABDOMEN: Soft and nontender. EXTREMITIES: Without clubbing, cyanosis, or edema. LABORATORY DATA: White count 6.9, hemoglobin 8.4, platelets 263. Sodium 133, potassium 3.8, chloride 97, bicarb 29, BUN 19, and creatinine 1.01. IMPRESSION: Bilateral pleural effusions, right greater than left, most likely associated with her mitral regurgitation. She does have a dry cough. We will do a thoracentesis today just to rule out an infected pleural space. I suspect this is related to mitral regurgitation, hydration after enduring an orthopedic procedure. TIME SPENT: This is a 50-minute consult, with greater than 50% of the time spent on the unit coordinating care. Job ID: [id number] [facility]
[2019-04-25 19:27] LABS: Bilirubin Negative (Negative); Blood, Urine Negative (Negative); Clarity Clear (Clear); Glucose, Urine (Dipstick) Normal (Negative); Leukocyte Negative Leu/uL (Negative); Nitrite Negative (Negative); Protein, Urine (Dipstick) Negative (Neg-Trace); Urobilinogen Normal mg/dL (Less than 2)
[2019-04-25 19:34] LABS: Vancomycin, Trough 10.4 ug/mL
[2019-04-25] MEDS ORDERED: Vancomycin HCl 1.25 GM in Sodium Chloride 0.9% 250 ML 250 ML IVPB SCH (20:00)
[2019-04-25] MEDS ORDERED: Nitroglycerin 2% Ointment 1 INCH/1 GM Packet TOP SCH (22:00)
--- NOTE | 2019-04-25 22:10 | EKG ---
Test Reason : Blood Pressure : / mmHG Vent. Rate : 076 BPM Atrial Rate : 300 BPM P-R Int : 000 ms QRS Dur : 086 ms QT Int : 370 ms P-R-T Axes : 000 -04 038 degrees QTc Int : 416 ms Atrial fibrillation Abnormal ECG Confirmed by JOSE GARCIA ([id number]), scientific editor JAYLEN BRANHAM ([id number]) on 04/25/2019 10:09:23 PM Referred By: JOSE Confirmed By:JOSE GARCIA
[2019-04-26] MEDS: Furosemide 40 MG/4 ML VIAL SLOW IVP SCH ×2 (06:07→14:04)
[2019-04-26 06:22] VITALS: BMI 27.6
[2019-04-26 06:52] LABS: ALT (SGPT) 30 U/L (8-55); AST (SGOT) 27 U/L (5-34); Albumin 2.8 g/dL (3.4-4.8); Alkaline Phosphatase 63 U/L (40-150); Anion Gap 11 mmol/L (10-20); BUN (Urea Nitrogen) 22 mg/dL (9.8-20.1); Bilirubin, Total 0.4 mg/dL (0.2-1.2); Calc. Creatinine Clearance 49 mL/min (70-130); Carbon Dioxide 27 mmol/L (23-31); Chloride 99 mmol/L (98-107); Estimated GFR-MDRD 53; Glucose 86 mg/dL (83-110); Magnesium 1.9 mg/dL (1.6-2.6); Potassium 4.2 mmol/L (3.5-5.1); Protein, Total 4.8 g/dL (6.0-8.3); Sodium 133 mmol/L (136-145)
[2019-04-26] MEDS: Ipratropium Bromide 2.5 ml Neb NEB SCH ×4 (06:58→19:17)
[2019-04-26 08:00] LABS: #Basophils 0.1 thou/uL (0.0-0.2); #Eosinphils 0.3 thou/uL (0.0-0.7); #Lymphocytes 1.1 thou/uL (1.20-3.40); #Monocytes 0.9 thou/uL (0.11-0.59); #Neutrophils 4.3 thou/uL (1.40-6.50); %Basophils 0.8 % (0.0-1.0); %Eosinophils 4.6 % (0.0-10.0); %Lymphocytes 16.6 % (21.0-51.0); %Monocytes 13.4 % (0.0-10.0); %Neutrophils 64.6 % (42.0-75.0); Hemoglobin 8.7 g/dL (12.0-16.0); MDiff Complete? YES; Macrocytosis SLIGHT = 6-15 cells (100X) (0-5/hpf); Mean Corpuscular HGB CONC 32.3 g/dL (32.0-36.0); Mean Corpuscular Hemoglobin 33.9 pg (27.0-31.0); Platelet Count 259 thou/uL (130-400); RBC Distribution Width 13.7 % (11.5-14.5); Red Blood Cell (RBC) Count 2.55 mill/uL (4.20-5.40); White Blood Cell (WBC) Count 6.6 thou/uL (4.8-10.8)
[2019-04-26] MEDS: Potassium Chloride 10 MEQ TAB PO SCH ×2 (08:33→16:22)
[2019-04-26] MEDS: Apixaban 5 MG TAB PO SCH ×2 (08:34→20:12)
[2019-04-26] MEDS: Multivitamin W/ Minerals 1 TAB PO SCH (08:34)
[2019-04-26] MEDS: guaiFENesin ER 600 MG TAB PO SCH ×2 (08:34→20:12)
[2019-04-26] MEDS: Ferrous Gluconate 324 MG TAB PO SCH ×2 (08:34→20:12)
[2019-04-26] MEDS: Folic Acid 1 MG TAB PO SCH (08:34)
[2019-04-26] MEDS: Cyanocobalamin (Vitamin B-12) 1,000 MCG TAB PO SCH (08:34)
[2019-04-26] MEDS: Senokot S 8.6-50 MG TAB PO SCH ×2 (08:34→20:13)
[2019-04-26] MEDS: Saccharomyces boulardii 250 MG CAP PO SCH (08:34)
[2019-04-26] MEDS: Lisinopril 5 MG TAB PO SCH (08:35)
[2019-04-26] MEDS: Polyethylene Glycol 3350 17 GM Packet PO SCH (08:35)
[2019-04-26] MEDS: Cefdinir 300 MG CAP PO SCH ×2 (08:44→20:12)
--- NOTE | 2019-04-26 13:33 | PRG ---
DATE OF SERVICE: 04/26/2019 SUBJECTIVE: Soo Morales has no new complaints. She was seen this morning. She is in no distress. She has no chest discomfort. She denies shortness of breath. She says she is breathing much better. OBJECTIVE: VITAL SIGNS: She is afebrile. Heart rate is 97, respiratory rate is 18, oximetry is 96% on room air, and blood pressure 125/68. LUNGS: Clear with only decreased breath sounds at both lung bases. HEART: Regular rhythm. ABDOMEN: Soft. Pathology on pleural fluid is pending. Pleural fluid Gram stain is negative. IMPRESSION: Transudative pleural effusion secondary to mitral regurgitation, hydration around the period of her hip replacement. RECOMMENDATION: She continues with diuresis. She does not have proteinuria. She has no occult liver disease that can be detected clinically. The effusions on the right greater than left are overwhelmingly likely related to her mitral regurgitation. Her antimicrobial therapy in my opinion could be stopped and switched to just a short course of a p.o. antibiotic. I doubt she has a pneumonia. There is no way to be sure there is a small infection hiding behind the abnormal chest radiograph. I would not treat her with more than a few more days of Omnicef. Job ID: [id number]
--- NOTE | 2019-04-26 16:37 | PDOC.PN ---
- Subjective Encounter Start Date: 04/26/19 Encounter Start Time: 09:45 Doing much better overall. No new complaints. Breathing is better. Ambulated with walker and assist. - Objective Resuscitation Status - Order Detail: 04/23/19 20:33 Resuscitation Status Routine Resuscitation Status: FULL: Full Resuscitation Vital Signs & Weight: Vital Signs (12 hours) Temp Pulse Resp BP Pulse Ox 04/26/19 15:17 98.5 F 96 18 100/69 95 04/26/19 13:39 104 H 16 94 L 04/26/19 12:05 98.8 F 97 18 125/68 96 04/26/19 07:01 98.6 F 90 18 124/70 95 04/26/19 06:58 101 H 16 Weight Admit Weight 178 lb 3.2 oz Weight 166 lb 1.6 oz I&O: 04/25/19 04/26/19 04/27/19 06:59 06:59 06:59 Intake Total 1435 1070 Output Total 1900 2175 Balance -465 -1105 Result Diagrams: 04/26/19 05:59 04/26/19 05:59 Phys Exam - Physical Examination Constitutional: NAD Respiratory: no wheezing, no rales, no rhonchi Slightly decreased at right base. Cardiovascular: no significant murmur, irregular Gastrointestinal: soft, non-tender, no distention, positive bowel sounds 1+ edema LLE with bilateral skin wrinkles in LE's. Psychiatric: normal affect, A&O x 3 Dx/Plan (1) Acute respiratory failure with hypoxia Code(s): J96.01 - ACUTE RESPIRATORY FAILURE WITH HYPOXIA Status: Acute (2) Pleural effusion Code(s): J90 - PLEURAL EFFUSION, NOT ELSEWHERE CLASSIFIED Status: Acute Comment: Transudate from failure. (3) Acute systolic (congestive) heart failure Code(s): I50.21 - ACUTE SYSTOLIC (CONGESTIVE) HEART FAILURE Status: Acute (4) Atrial fibrillation Code(s): I48.91 - UNSPECIFIED ATRIAL FIBRILLATION Status: Acute (5) Anemia Code(s): D64.9 - ANEMIA, UNSPECIFIED Status: Acute (6) NSTEMI (non-ST elevated myocardial infarction) Code(s): I21.4 - NON-ST ELEVATION (NSTEMI) MYOCARDIAL INFARCTION Status: Acute Comment: Type II (7) CKD (chronic kidney disease), stage III Code(s): N18.3 - CHRONIC KIDNEY DISEASE, STAGE 3 (MODERATE) Status: Acute (8) HTN (hypertension) Code(s): I10 - ESSENTIAL (PRIMARY) HYPERTENSION Status: Acute (9) Mitral regurgitation Status: Acute - Plan * Long discussion with the patient and her daughters. * Explained the nature of the effusion and CHF. * Discussed diet, exercise and follow up. * Continuing to diurese now. * Once at dry weight can change to po lasix. * Would like to consider additional rehab. Did not like inpatient rehab.
[2019-04-27] MEDS ORDERED: Acetaminophen 325 MG TAB PO PRN (05:11)
[2019-04-27] MEDS: Furosemide 40 MG/4 ML VIAL SLOW IVP SCH ×2 (05:25→13:09)
[2019-04-27 05:40] LABS: #Basophils 0.1 thou/uL (0.0-0.2); #Eosinphils 0.3 thou/uL (0.0-0.7); #Monocytes 0.8 thou/uL (0.11-0.59); #Neutrophils 4.7 thou/uL (1.40-6.50); %Basophils 1.1 % (0.0-1.0); %Lymphocytes 14.2 % (21.0-51.0); %Monocytes 12.1 % (0.0-10.0); %Neutrophils 68.7 % (42.0-75.0); Hemoglobin 8.8 g/dL (12.0-16.0); Mean Corpuscular HGB CONC 32.9 g/dL (32.0-36.0); Mean Corpuscular Hemoglobin 34.1 pg (27.0-31.0); Mean Platelet Volume 5.7 fL (7.4-10.4); Platelet Count 271 thou/uL (130-400); RBC Distribution Width 13.5 % (11.5-14.5); Red Blood Cell (RBC) Count 2.58 mill/uL (4.20-5.40); White Blood Cell (WBC) Count 6.8 thou/uL (4.8-10.8)
[2019-04-27 06:04] LABS: ALT (SGPT) 28 U/L (8-55); AST (SGOT) 22 U/L (5-34); Alkaline Phosphatase 69 U/L (40-150); Anion Gap 13 mmol/L (10-20); BUN (Urea Nitrogen) 22 mg/dL (9.8-20.1); Bilirubin, Total 0.5 mg/dL (0.2-1.2); Calc. Creatinine Clearance 48 mL/min (70-130); Calcium 8.5 mg/dL (7.8-10.44); Carbon Dioxide 28 mmol/L (23-31); Chloride 97 mmol/L (98-107); Estimated GFR-MDRD 52; Globulin 2.2 g/dL (2.4-3.5); Glucose 93 mg/dL (83-110); Magnesium 1.8 mg/dL (1.6-2.6); Potassium 3.9 mmol/L (3.5-5.1); Protein, Total 5.2 g/dL (6.0-8.3); Sodium 134 mmol/L (136-145)
[2019-04-27] MEDS: Ipratropium Bromide 2.5 ml Neb NEB SCH ×4 (06:56→18:45)
[2019-04-27] MEDS: Apixaban 5 MG TAB PO SCH ×2 (08:46→20:07)
[2019-04-27] MEDS: Cefdinir 300 MG CAP PO SCH ×2 (08:46→20:07)
[2019-04-27] MEDS: Potassium Chloride 10 MEQ TAB PO SCH ×2 (08:46→16:06)
[2019-04-27] MEDS: Cyanocobalamin (Vitamin B-12) 1,000 MCG TAB PO SCH (08:46)
[2019-04-27] MEDS: Senokot S 8.6-50 MG TAB PO SCH ×2 (08:47→20:06)
[2019-04-27] MEDS: Ferrous Gluconate 324 MG TAB PO SCH ×2 (08:47→20:07)
[2019-04-27] MEDS: Folic Acid 1 MG TAB PO SCH (08:47)
[2019-04-27] MEDS: Lisinopril 5 MG TAB PO SCH (08:47)
[2019-04-27] MEDS: Multivitamin W/ Minerals 1 TAB PO SCH (08:47)
[2019-04-27] MEDS: Polyethylene Glycol 3350 17 GM Packet PO SCH (08:47)
[2019-04-27] MEDS: Saccharomyces boulardii 250 MG CAP PO SCH (08:47)
[2019-04-27] MEDS: guaiFENesin ER 600 MG TAB PO SCH ×2 (08:48→20:07)
--- NOTE | 2019-04-27 11:31 | OP ---
DATE OF PROCEDURE: 04/25/2019 PROCEDURE PERFORMED: Thoracentesis. INDICATION: Right pleural effusion, unclear etiology. DESCRIPTION OF PROCEDURE: Right posterior hemithorax was cleansed with chlorhexidine. 10 mL of 1% lidocaine was used to anesthetize the skin and the pleura. A small incision was made with a #11 blade. Fluid was localized with a 22-gauge needle. An 8-Lithuanian catheter was inserted into the pleural space without difficulty. Approximately, 500 mL of clear yellow pleural fluid was evacuated without difficulty. She began to experience some pleuritic chest discomfort so the catheter was withdrawn. Sterile dressing was applied. The fluid was sent for the appropriate studies. The pH of the fluid was 7.57. There was no clinical indication of pneumothorax and no chest radiograph was done. Job ID: [id number]
--- NOTE | 2019-04-27 16:38 | PRG ---
DATE OF SERVICE: 04/27/2019 SUBJECTIVE: An 83-year-old female with recent left hip surgery, presented to the hospital with shortness of breath. A workup was consistent with congestive heart failure along with healthcare-associated pneumonia. She underwent thoracentesis that was consistent with transudate. Shortness of breath has significantly improved. She denies any chest pain at this time. REVIEW OF SYSTEMS: No nausea, vomiting, diarrhea, or focal neurologic deficit reported. DIAGNOSTIC STUDIES: Telemetry monitoring by my review showed atrial fibrillation. CURRENT MEDICATIONS: Reviewed. The patient is on: 1. Eliquis. 2. Omnicef. 3. Oral Cardizem. 4. Ferrous gluconate. 5. Potassium supplementation. 6. IV Lasix. OBJECTIVE: GENERAL: An 83-year-old female, in no apparent distress. LUNGS: Showed decreased breath sounds at bilateral bases with scattered rhonchi. No accessory muscle use. HEART: Irregularly irregular. No heaves or pulsation. ABDOMEN: Soft. Bowel sounds present. EXTREMITIES: No edema or calf tenderness. NEUROLOGIC: Grossly nonfocal. LABORATORY FINDINGS: Sodium 134, potassium 3.9, BUN 22, creatinine 1.02. Hemoglobin 8.8 and hematocrit 26.7. Blood cultures negative at 48 hours. Culture from pleural fluid is negative at 48 hours. Chest x-ray, by my review post-thoracentesis, showed bilateral pleural effusion. IMPRESSION: 1. Acute hypoxic respiratory failure secondary to congestive heart failure and pneumonia. 2. Acute on chronic diastolic heart failure exacerbation. 3. Bilateral pleural effusion, status post thoracentesis. 4. Healthcare-associated pneumonia, suspected pneumococcal. 5. Chronic atrial fibrillation, on anticoagulation. 6. Chronic anemia. 7. Hypotonic Hyponatremia secondary to volume overload, improving. 8. Type 2 myocardial infarction/demand ischemia. 9. Chronic kidney disease stage 3. 10. Recent left hip surgery. 11. Hypertension. 12. Macrocytosis. 13. Moderate mitral regurgitation. 14. Xtroqofd-pj-eioftf tricuspid regurgitation. 15. Mild aortic regurgitation. 16. Mild protein-calorie malnutrition. PLAN: We will continue IV diuretics. We will recheck electrolytes in a.m. Continue oral antibiotics for pneumonia. We will continue all other home medications including anticoagulation. DISPOSITION: Probably in 24 hours if okay with consultants. Job ID: [id number]
--- NOTE | 2019-04-27 18:02 | PRG ---
DATE OF SERVICE: 04/27/2019 SUBJECTIVE: Ms. Morales is doing much better. She recently underwent thoracentesis. She is continued to diurese. She feels close to baseline. OBJECTIVE: VITAL SIGNS: Blood pressure 134/80, pulse 90, respirations 20. GENERAL: Patient is a pleasant female, who is in no acute distress. The patient appears their stated age. NEUROLOGIC: The patient is alert and oriented x3 with no focal neurologic deficits. HEENT: Sclerae without icterus. Mouth has moist mucous membranes with normal pallor. NECK: No JVD. Carotid upstroke brisk. No bruits bilaterally. LUNGS: Clear to auscultation with unlabored respirations. BACK: No scoliosis or kyphosis. CARDIAC: Irregularly irregular. ABDOMEN: Soft, nontender, nondistended. No peritoneal signs present. No hepatosplenomegaly. No abnormal striae. EXTREMITIES: 2+ femoral and 2+ dorsalis pedis pulses. No cyanosis, clubbing, or edema. SKIN: No gross abnormalities. PERTINENT LABORATORY DATA: Hemoglobin 8.8, platelet count 271. Creatinine 1.02. Albumin 3.0. IMPRESSION: 1. Acute on chronic diastolic heart failure. 2. Atrial fibrillation. 3. Pleural effusion. RECOMMENDATIONS: 1. Continue Eliquis at 5 mg b.i.d. 2. Increase Cardizem to 240 q.a.m. for better rate control. 3. Continue IV Lasix and switch to p.o. in a.m. From my standpoint, she is feeling better. It would be okay from my standpoint to discharge home in a.m. Job ID: [id number]
[2019-04-28 05:50] LABS: Anion Gap 12 mmol/L (10-20); BUN (Urea Nitrogen) 26 mg/dL (9.8-20.1); BUN/Creatinine Ratio 24.53; Calc. Creatinine Clearance 46 mL/min (70-130); Calcium 8.9 mg/dL (7.8-10.44); Carbon Dioxide 29 mmol/L (23-31); Chloride 98 mmol/L (98-107); Estimated GFR-MDRD 49; Glucose 95 mg/dL (83-110); Phosphorus 3.6 mg/dL (2.3-4.7); Potassium 3.8 mmol/L (3.5-5.1); Sodium 135 mmol/L (136-145)
[2019-04-28] MEDS: Furosemide 40 MG/4 ML VIAL SLOW IVP SCH (05:53)
[2019-04-28] MEDS: Ipratropium Bromide 2.5 ml Neb NEB SCH (06:46)
--- NOTE | 2019-04-28 07:55 | PDOC.CTH ---
Cardiology Progress Note - Objective Vital Signs Temp Pulse Resp BP Pulse Ox 04/28/19 07:27 98.3 F 102 H 18 124/82 93 L 04/28/19 06:46 101 H 16 04/28/19 03:09 98.5 F 91 14 134/74 92 L 04/28/19 00:00 20 04/27/19 20:00 98.2 F 108 H 20 111/62 97 Admit Weight 178 lb 3.2 oz Weight 157 lb 8 oz 04/27/19 04/28/19 04/29/19 06:59 06:59 06:59 Intake Total 1454 1120 Output Total 2650 2500 Balance -1196 -1380 - Physical Examination General/Neuro: NAD Neck: carotid US brisk, no JVD present Lungs: unlabored respirations Heart: PMI normal, RRR Abdomen: NT/ND, soft Extremities: + femoral B - Labs Result Diagrams: 04/27/19 05:03 04/28/19 05:05 Troponin/CKMB CK-MB (CK-2) 2.5 ng/mL (0-6.6) 04/23/19 16:20 Troponin I 0.024 ng/mL (< 0.028) 04/23/19 23:22 - Assessment/Plan SOB Acute on chronic diastolic dysfunction MR afib Increase SOB likely MF Pt correctly doing well with appropriate diuresis Plan on transfer to rehab or skilled or NH Change lasix to PO No further recommendations
[2019-04-28] MEDS: Cefdinir 300 MG CAP PO SCH ×2 (08:44→20:21)
[2019-04-28] MEDS: Apixaban 5 MG TAB PO SCH ×2 (08:44→20:21)
[2019-04-28] MEDS: Potassium Chloride 10 MEQ TAB PO SCH ×2 (08:44→16:37)
[2019-04-28] MEDS: Ferrous Gluconate 324 MG TAB PO SCH ×2 (08:45→20:21)
[2019-04-28] MEDS: Saccharomyces boulardii 250 MG CAP PO SCH (08:45)
[2019-04-28] MEDS: guaiFENesin ER 600 MG TAB PO SCH ×2 (08:45→20:21)
[2019-04-28] MEDS: Lisinopril 5 MG TAB PO SCH (08:45)
[2019-04-28] MEDS: Senokot S 8.6-50 MG TAB PO SCH ×2 (08:45→20:22)
[2019-04-28] MEDS: Multivitamin W/ Minerals 1 TAB PO SCH (08:45)
[2019-04-28] MEDS: Folic Acid 1 MG TAB PO SCH (08:45)
[2019-04-28] MEDS: Cyanocobalamin (Vitamin B-12) 1,000 MCG TAB PO SCH (08:45)
[2019-04-28] MEDS: Polyethylene Glycol 3350 17 GM Packet PO SCH (08:51)
[2019-04-28] MEDS: Furosemide 20 MG TAB PO SCH (13:26)
[2019-04-28] MEDS ORDERED: ALPRAZolam 0.25 MG TAB PO PRN (17:02)
--- NOTE | 2019-04-28 21:44 | PRG ---
DATE OF SERVICE: 04/28/2019 SUBJECTIVE: An 83-year-old female with congestive heart failure and recent left hip surgery, presented to the hospital with shortness of breath. She was diagnosed with healthcare-associated pneumonia along with congestive heart failure. She also had pleural effusion requiring thoracentesis. Pleural findings were consistent with transudate. The shortness of breath has significantly improved. No chest pain, palpitations, syncope reported. REVIEW OF SYSTEM: She denies any fever, chills, nausea, vomiting, constipation. PHYSICAL EXAMINATION: VITAL SIGNS: Temperature 98.2, respiration 17, pulse 80, blood pressure of 126/76, O2 saturation 95% on room air. GENERAL: An 83-year-old female in no apparent distress. LUNGS: Showed diminished air entry at bilateral bases. No wheezing, rales, rhonchi. HEART: S1, S2 present. Irregularly irregular. No heaves or pulsation. ABDOMEN: Soft. Bowel sounds present. EXTREMITIES: 1+ edema in bilateral lower extremity. No calf tenderness. NEUROLOGIC: Grossly nonfocal. Telemetry monitoring by my review showed atrial fibrillation. SIGNIFICANT LABORATORY DATA: Sodium 135, potassium 3.8, BUN 26, creatinine 1.06. Pleural fluid culture negative. Blood cultures have been negative. CURRENT MEDICATIONS: Reviewed. The patient is on oral Lasix. Cardizem dose has been increased to 240 mg daily by Cardiology. She is on oral antibiotics as well as Eliquis. IMPRESSION: 1. Vrxyx-du-byzocpz diastolic heart failure exacerbation, improving. 2. Acute hypoxic respiratory failure. 3. Healthcare-associated pneumonia, suspected pneumococcal. 4. Bilateral pleural effusion, status post thoracentesis. 5. Chronic atrial fibrillation, on anticoagulation. 6. Chronic anemia. 7. Hypotonic hyponatremia secondary to volume overload, improving. 8. Elevated troponin secondary to type 2 myocardial infarction/demand ischemia. 9. Chronic kidney disease stage 3. 10. Recent left hip surgery. 11. Hypertension. 12. Moderate mitral regurgitation. 13. Mild aortic regurgitation. 14. Mild protein-calorie malnutrition. 15. Vogcewke-ii-rujvex tricuspid regurgitation. 16. Macrocytic anemia. PLAN: [facility]charge orders to [facility] have been completed. However, [facility] is unable to accept her until tomorrow morning. We will hold discharge for now. We will continue oral diuretics. The patient was counseled on congestive heart failure. Continue anticoagulation. Job ID: [id number]
[2019-04-29 08:58] VITALS: BP 113/64; TEMP 98.7
[2019-04-29] MEDS: Saccharomyces boulardii 250 MG CAP PO SCH (09:24)
[2019-04-29] MEDS: Furosemide 20 MG TAB PO SCH (09:24)
[2019-04-29] MEDS: Cefdinir 300 MG CAP PO SCH (09:24)
[2019-04-29] MEDS: Folic Acid 1 MG TAB PO SCH (09:25)
[2019-04-29] MEDS: Apixaban 5 MG TAB PO SCH (09:25)
[2019-04-29] MEDS: guaiFENesin ER 600 MG TAB PO SCH (09:25)
[2019-04-29] MEDS: Ferrous Gluconate 324 MG TAB PO SCH (09:25)
[2019-04-29] MEDS: Senokot S 8.6-50 MG TAB PO SCH (09:25)
[2019-04-29] MEDS: Lisinopril 5 MG TAB PO SCH (09:26)
[2019-04-29] MEDS: Cyanocobalamin (Vitamin B-12) 1,000 MCG TAB PO SCH (09:26)
[2019-04-29] MEDS: Potassium Chloride 10 MEQ TAB PO SCH (09:26)
[2019-04-29] MEDS: Polyethylene Glycol 3350 17 GM Packet PO SCH (09:27)
[2019-04-29] MEDS: Multivitamin W/ Minerals 1 TAB PO SCH (09:27)
--- NOTE | 2019-04-29 11:32 | DIS ---
DATE OF ADMISSION: 04/23/2019 DATE OF DISCHARGE: 04/29/2019 DISCHARGE DISPOSITION: To [facility]. ALLERGIES: THE PATIENT IS ALLERGIC TO SULFA. DISCHARGE MEDICATIONS: 1. Omnicef 300 mg twice daily until 02 May. 2. Vitamin B12 of 1000 mcg daily. 3. Cardizem CD 240 mg daily. 4. Ferrous gluconate 324 mg b.i.d. 5. Folic acid 1 mg daily. 6. Multivitamin one tablet daily. 7. Florastor 250 mg daily until 09 May. 8. Senokot S one tablet daily tramadol as needed. 9. Tylenol as needed. 10. Eliquis 5 mg b.i.d. 11. Lasix 40 mg daily. 12. Lisinopril 5 mg daily. 13. MiraLAX 17 g daily. 14. Potassium chloride 10 mEq daily. 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 Cardiology, Dr. Tom. 2. Pulmonary, Dr. Hancock. PHYSICAL EXAMINATION: VITAL SIGNS: On the day of discharge showed temperature 98.7 with pulse rate of 101, respirations of 18, and blood pressure 113/64 with O2 saturation 94% on room air. BRIEF HOSPITAL COURSE: The patient is an 83-year-old female with congestive heart failure, atrial fibrillation, on Eliquis, presented to the hospital on April 23, 2019 with shortness of breath. A workup was consistent with acute hypoxic respiratory failure secondary to congestive heart failure exacerbation as well as healthcare-associated pneumonia. She was started on broad-spectrum antibiotics along with diuretics. She was seen by Cardiology as well as Pulmonology. She underwent right-sided thoracentesis due to significant pleural effusion. The pleural fluid studies were consistent with transudate. Shortness of breath has significantly improved. Weight on the day of discharge is 154 pounds from 178 pounds. She was extensively counseled on congestive heart failure. She will need a repeat basic metabolic profile after 1 week. She will follow up with primary care physician, Dr. Kalpesh Magallon in 1 week. She will also follow up with Dr. Tom as well as Dr. Hancock in 2 weeks. FINAL DIAGNOSES: 1. Acute on chronic diastolic heart failure exacerbation. 2. Acute hypoxic respiratory failure. 3. Healthcare-associated pneumonia, suspected pneumococcal. 4. Bilateral pleural effusion, status post right-sided thoracentesis. 5. Chronic atrial fibrillation, on anticoagulation. Cardizem dose has been increased to 240 mg daily. 6. Chronic anemia. 7. Hypotonic hyponatremia secondary to volume overload. Her sodium on admission was 125, at discharge is 135. 8. Chronic kidney disease, stage 3. 9. Elevated troponin secondary to type 2 myocardial infarction/demand ischemia. 10. Recent left hip surgery. 11. Hypertension. 12. Moderate mitral regurgitation. 13. Mild aortic regurgitation. 14. Uucbftyv-pf-yydtgo tricuspid regurgitation. 15. Macrocytic anemia. 16. Mild protein-calorie malnutrition. TIME SPENT: Total time coordinating the discharge of this patient was 32 minutes. Job ID: [id number]
== END 2019-04-29 09:54 | DRG 280 ==
LOC: ERS 15:57 → 2NO 18:15
PROVIDERS: ADMIT Internal Medicine; ATTEND Internal Medicine
PROC: 0W993ZZ Drainage of Right Pleural Cavity, Percutaneous Approach (ICD-10-PCS; principal; 2019-04-25)
DX: I13.0 Hypertensive heart and chronic kidney disease with heart failure and stage 1 through stage 4 chronic kidney disease, or unspecified chronic kidney disease (principal); J96.01 Acute respiratory failure with hypoxia; I21.A1 Myocardial infarction type 2; J18.9 Pneumonia, unspecified organism; I50.23 Acute on chronic systolic (congestive) heart failure; J91.8 Pleural effusion in other conditions classified elsewhere; E87.1 Hypo-osmolality and hyponatremia; E44.0 Moderate protein-calorie malnutrition; Y95 Nosocomial condition; I48.2 Chronic atrial fibrillation; N18.3 Chronic kidney disease, stage 3 (moderate); D53.9 Nutritional anemia, unspecified; I08.3 Combined rheumatic disorders of mitral, aortic and tricuspid valves; Z68.25 Body mass index [BMI] 25.0-25.9, adult; Z79.01 Long term (current) use of anticoagulants; Z88.2 Allergy status to sulfonamides
CPT/HCPCS: 36415; 71045; 71046; 71275; 80048; 80053; 80069; 80202; 81003; 82550; 82553; 82945; 83615; 83735; 83880; 83930; 84145; 84157; 84484; 85025; 85060; 85379; 87040; 87070; 87205; 88112; 88305; 89051; 93005; 93306; 93798; 94640; 96365; 96375; J0692; J1940; J2270; J2405; J3370; J3490; J7050; J7620; Q0162; Q9966

== ENCOUNTER 2021-07-12 12:54 | Outpatient (CLI) | payer MEDICARE, BC | END 2021-07-12 12:55 | disposition home or self-care (01) | LOC: BICMAMMO 12:54 | PROVIDERS: ATTEND Internal Medicine | DX: Z12.31 Encounter for screening mammogram for malignant neoplasm of breast (principal); Z13.820 Encounter for screening for osteoporosis; Z78.0 Asymptomatic menopausal state; E28.39 Other primary ovarian failure; M81.0 Age-related osteoporosis without current pathological fracture; M85.88 Other specified disorders of bone density and structure, other site; Z98.890 Other specified postprocedural states | CPT/HCPCS: 77063; 77067; 77080 ==

== ENCOUNTER 2022-07-13 12:37 | Outpatient (CLI) | payer MEDICARE, BC | END 2022-07-13 12:38 | disposition home or self-care (01) | LOC: BICMAMMO 12:37 | PROVIDERS: ATTEND Internal Medicine | DX: Z12.31 Encounter for screening mammogram for malignant neoplasm of breast (principal) | CPT/HCPCS: 77063; 77067 ==

== ENCOUNTER 2022-09-04 10:18 | Inpatient (IN) | payer MEDICARE, BC ==
[2022-09-04 12:19] LABS: #Basophils 0.1 thou/uL (0.0-0.2); #Eosinphils 0.1 thou/uL (0.0-0.7); #Lymphocytes 0.9 thou/uL (1.20-3.40); #Monocytes 0.8 thou/uL (0.11-0.59); #Neutrophils 6.9 thou/uL (1.40-6.50); %Basophils 0.8 % (0.0-1.0); %Eosinophils 0.9 % (0.0-10.0); %Monocytes 9.3 % (0.0-10.0); %Neutrophils 79.1 % (42.0-75.0); Hemoglobin 12.1 g/dL (12.0-16.0); Mean Corpuscular HGB CONC 33.1 g/dL (32.0-36.0); Mean Corpuscular Hemoglobin 34.2 pg (27.0-31.0); Mean Platelet Volume 7.4 fL (7.4-10.4); Platelet Count 226 10x3/uL (130-400); RBC Distribution Width 12.2 % (11.5-14.5); Red Blood Cell (RBC) Count 3.54 mill/uL (4.20-5.40); White Blood Cell (WBC) Count 8.7 10x3/uL (4.8-10.8)
[2022-09-04] MEDS ORDERED: Prochlorperazine Edisylate 10 MG in Sodium Chloride 0.9% 50 ML IVPB SCH (12:30)
[2022-09-04 12:33] LABS: INR-International Normal Ratio 1.3; PTT 40.8 sec (22.9-36.1); Prothrombin Time 16.3 sec (12.0-14.7)
[2022-09-04 12:35] LABS: ALT (SGPT) 37 U/L (8-55); AST (SGOT) 48 U/L (5-34); Albumin 3.9 g/dL (3.4-4.8); Alkaline Phosphatase 79 U/L (40-110); Anion Gap 17 mmol/L (10-20); BUN (Urea Nitrogen) 30 mg/dL (9.8-20.1); Bilirubin, Total 0.8 mg/dL (0.2-1.2); Calc. Creatinine Clearance 0 mL/min (70-130); Calcium 9.1 mg/dL (7.8-10.44); Carbon Dioxide 23 mmol/L (23-31); Chloride 100 mmol/L (98-107); Estimated GFR 42; Globulin 2.8 g/dL (2.4-3.5); Glucose 95 mg/dL (83-110); Potassium 3.8 mmol/L (3.5-5.1); Protein, Total 6.7 g/dL (5.8-8.1); Sodium 136 mmol/L (136-145)
[2022-09-04] MEDS ORDERED: Diltiazem 125 MG/25 ML ONE (12:55)
[2022-09-04 12:56] LABS: CKMB 4.2 ng/mL (0-6.6)
[2022-09-04] MEDS ORDERED: Morphine 4 MG/ML VIAL ONE (13:27)
[2022-09-04 15:47] LABS: Troponin I 0.042 ng/mL (< 0.028)
[2022-09-04] MEDS ORDERED: Labetalol HCl 100 MG/20 ML VIAL SLOW IVP PRN (16:10)
[2022-09-04] MEDS ORDERED: HUMAN PROTHROMBIN COMPLX IV SCH ×2 (16:15→17:15)
[2022-09-04] MEDS ORDERED: [UNRECOGNIZED DRUG - OTHER] IV SCH ×2 (16:15→17:15)
[2022-09-04] MEDS ORDERED: HUM PROTHROMBIN CPLX IV SCH ×2 (16:15→17:15)
[2022-09-04] MEDS ORDERED: Diltiazem 125 MG in Sodium Chloride 0.9% 100 ML IVPB SCH (20:15)
[2022-09-04 22:12] VITALS: BMI 27.9
[2022-09-04] MEDS: Acetaminophen 325 MG TAB PO PRN (23:38)
[2022-09-05] MEDS ORDERED: Pregabalin 50 MG CAP PO SCH (00:30)
[2022-09-05] MEDS: Acetaminophen 325 MG TAB PO PRN ×2 (04:58→14:04)
[2022-09-05 08:44] LABS: Anion Gap 16 mmol/L (10-20); BUN (Urea Nitrogen) 27 mg/dL (9.8-20.1); Calc. Creatinine Clearance 42 mL/min (70-130); Calcium 8.8 mg/dL (7.8-10.44); Carbon Dioxide 20 mmol/L (23-31); Chloride 104 mmol/L (98-107); Estimated GFR 48; Glucose 96 mg/dL (83-110); Magnesium 1.9 mg/dL (1.6-2.6); Potassium 3.7 mmol/L (3.5-5.1); Sodium 136 mmol/L (136-145)
[2022-09-05] MEDS ORDERED: Lisinopril 10 MG TAB PO SCH (09:00)
[2022-09-05] MEDS ORDERED: Methocarbamol 500 MG TAB PO PRN (15:11)
[2022-09-05] MEDS: Acetaminophen/Codeine 30-300mg Tablet PO PRN (16:32)
[2022-09-05] MEDS ORDERED: Lisinopril 5 MG TAB PO SCH (21:00)
[2022-09-05] MEDS: Pregabalin 50 MG CAP PO SCH (21:34)
[2022-09-05] MEDS ORDERED: traMADol HCl 50 MG TAB PO PRN (23:13)
[2022-09-06] MEDS: Acetaminophen/Codeine 30-300mg Tablet PO PRN ×3 (00:10→20:34)
[2022-09-06] MEDS ORDERED: OLANZapine 2.5 MG TAB PO SCH ×2 (02:00→09:00)
[2022-09-06 05:48] LABS: Anion Gap 11 mmol/L (10-20); BUN (Urea Nitrogen) 30 mg/dL (9.8-20.1); Calc. Creatinine Clearance 40 mL/min (70-130); Calcium 8.5 mg/dL (7.8-10.44); Carbon Dioxide 24 mmol/L (23-31); Chloride 103 mmol/L (98-107); Estimated GFR 45; Glucose 123 mg/dL (83-110); Magnesium 1.9 mg/dL (1.6-2.6); Potassium 3.5 mmol/L (3.5-5.1); Sodium 134 mmol/L (136-145)
[2022-09-06] MEDS: Lisinopril 10 MG TAB PO SCH ×2 (09:32→20:34)
[2022-09-06] MEDS: Pregabalin 50 MG CAP PO SCH (20:33)
[2022-09-07 05:27] LABS: Anion Gap 12 mmol/L (10-20); BUN (Urea Nitrogen) 33 mg/dL (9.8-20.1); Calc. Creatinine Clearance 35 mL/min (70-130); Calcium 8.6 mg/dL (7.8-10.44); Carbon Dioxide 24 mmol/L (23-31); Chloride 104 mmol/L (98-107); Estimated GFR 39; Glucose 100 mg/dL (83-110); Sodium 136 mmol/L (136-145)
[2022-09-07] MEDS: Lisinopril 10 MG TAB PO SCH (10:55)
[2022-09-07] MEDS: Acetaminophen/Codeine 30-300mg Tablet PO PRN (10:56)
[2022-09-07 11:53] VITALS: TEMP 98.1
[2022-09-07] MEDS ORDERED: Docusate 100 MG CAP PO SCH (12:30)
[2022-09-07] MEDS ORDERED: Polyethylene Glycol 3350 17 GM Packet PO SCH (12:30)
[2022-09-07 13:09] VITALS: BP 139/74
== END 2022-09-07 14:14 | DRG 64 ==
LOC: ERS 10:18 → ERHOLD 13:30 → NEURO 19:45
PROVIDERS: ADMIT Internal Medicine; ATTEND Internal Medicine
DX: I61.3 Nontraumatic intracerebral hemorrhage in brain stem (principal); Z66 Do not resuscitate; Z20.822 Contact with and (suspected) exposure to COVID-19; R29.700 NIHSS score 0; I63.81 Other cerebral infarction due to occlusion or stenosis of small artery; I50.32 Chronic diastolic (congestive) heart failure; I13.0 Hypertensive heart and chronic kidney disease with heart failure and stage 1 through stage 4 chronic kidney disease, or unspecified chronic kidney disease; I48.19 Other persistent atrial fibrillation; I11.0 Hypertensive heart disease with heart failure; I07.1 Rheumatic tricuspid insufficiency; N18.32 Chronic kidney disease, stage 3b; M50.30 Other cervical disc degeneration, unspecified cervical region; Z96.649 Presence of unspecified artificial hip joint; Z96.659 Presence of unspecified artificial knee joint; E66.01 Morbid (severe) obesity due to excess calories; Z68.28 Body mass index [BMI] 28.0-28.9, adult; Z88.2 Allergy status to sulfonamides; Z79.899 Other long term (current) drug therapy; Z79.01 Long term (current) use of anticoagulants
CPT/HCPCS: 36415; 70450; 70551; 71045; 72125; 80048; 80053; 82553; 83735; 84484; 85025; 85610; 85730; 93005; J0780; J2270; J3490; J7168; U0003; U0005

== ENCOUNTER 2022-09-07 19:22 | Inpatient (IN) | payer MEDICARE, BC ==
[2022-09-07] MEDS ORDERED: cefTRIAXone\\ROCEPHIN 1 GM VIAL ONE (19:45)
[2022-09-07 20:10] LABS: #Eosinphils 0.1 thou/uL (0.0-0.7); #Lymphocytes 0.8 thou/uL (1.20-3.40); #Monocytes 0.9 thou/uL (0.11-0.59); #Neutrophils 10.1 thou/uL (1.40-6.50); %Basophils 0.1 % (0.0-1.0); %Eosinophils 0.4 % (0.0-10.0); %Lymphocytes 6.6 % (21.0-51.0); %Monocytes 7.7 % (0.0-10.0); %Neutrophils 85.1 % (42.0-75.0); Hemoglobin 11.3 g/dL (12.0-16.0); Mean Corpuscular HGB CONC 32.8 g/dL (32.0-36.0); Mean Corpuscular Hemoglobin 33.9 pg (27.0-31.0); Platelet Count 251 10x3/uL (130-400); RBC Distribution Width 12.5 % (11.5-14.5); Red Blood Cell (RBC) Count 3.34 mill/uL (4.20-5.40); White Blood Cell (WBC) Count 11.9 10x3/uL (4.8-10.8)
[2022-09-07 20:40] LABS: ALT (SGPT) 33 U/L (8-55); AST (SGOT) 33 U/L (5-34); Albumin 3.5 g/dL (3.4-4.8); Alkaline Phosphatase 64 U/L (40-110); Anion Gap 15 mmol/L (10-20); BUN (Urea Nitrogen) 36 mg/dL (9.8-20.1); Bilirubin, Total 0.5 mg/dL (0.2-1.2); Calc. Creatinine Clearance 0 mL/min (70-130); Calcium 8.8 mg/dL (7.8-10.44); Carbon Dioxide 21 mmol/L (23-31); Chloride 100 mmol/L (98-107); Estimated GFR 35; Globulin 2.9 g/dL (2.4-3.5); Glucose 162 mg/dL (83-110); Lipase 17 U/L (8-78); Magnesium 1.8 mg/dL (1.6-2.6); Potassium 4.7 mmol/L (3.5-5.1); Protein, Total 6.4 g/dL (5.8-8.1); Sodium 131 mmol/L (136-145)
[2022-09-07] MEDS ORDERED: Morphine 4 MG/ML VIAL ONE (20:50)
[2022-09-07] MEDS ORDERED: Furosemide 40 MG/4 ML VIAL ONE (22:01)
[2022-09-07] MEDS ORDERED: Ondansetron PF 4 MG/2 ML Vial IVP PRN (22:22)
[2022-09-07] MEDS ORDERED: Furosemide 40 MG/4 ML VIAL SLOW IVP SCH (22:24)
[2022-09-07 23:16] LABS: SARS-CoV-2 NAA Rapid Test Not Detected (NotDetected)
[2022-09-08 00:41] VITALS: BMI 33.8
[2022-09-08] MEDS ORDERED: Morphine 4 MG/ML VIAL ONE ×3 (00:43→13:55)
[2022-09-08] MEDS: Morphine 4 MG/ML VIAL SLOW IVP PRN ×3 (01:02→14:13)
[2022-09-08] MEDS: Ampicillin/Sulbactam 3 GM in Sodium Chloride 0.9% 100 ML IVPB SCH ×4 (01:37→18:41)
[2022-09-08 01:52] LABS: #Eosinphils 0.1 thou/uL (0.0-0.7); #Lymphocytes 1.1 thou/uL (1.20-3.40); #Monocytes 1.3 thou/uL (0.11-0.59); #Neutrophils 8.1 thou/uL (1.40-6.50); %Basophils 0.2 % (0.0-1.0); %Eosinophils 0.9 % (0.0-10.0); %Lymphocytes 10.7 % (21.0-51.0); %Monocytes 11.8 % (0.0-10.0); %Neutrophils 76.3 % (42.0-75.0); Hemoglobin 10.8 g/dL (12.0-16.0); Mean Corpuscular HGB CONC 32.6 g/dL (32.0-36.0); Mean Corpuscular Hemoglobin 33.4 pg (27.0-31.0); Mean Platelet Volume 6.5 fL (7.4-10.4); Platelet Count 241 10x3/uL (130-400); RBC Distribution Width 12.6 % (11.5-14.5); Red Blood Cell (RBC) Count 3.24 mill/uL (4.20-5.40); White Blood Cell (WBC) Count 10.6 10x3/uL (4.8-10.8)
[2022-09-08 02:19] LABS: Troponin I 0.047 ng/mL (< 0.028)
[2022-09-08 02:46] LABS: ALT (SGPT) 28 U/L (8-55); AST (SGOT) 27 U/L (5-34); Albumin 3.3 g/dL (3.4-4.8); Alkaline Phosphatase 57 U/L (40-110); Anion Gap 15 mmol/L (10-20); BUN (Urea Nitrogen) 35 mg/dL (9.8-20.1); Bilirubin, Total 0.6 mg/dL (0.2-1.2); Calc. Creatinine Clearance 40 mL/min (70-130); Calcium 8.5 mg/dL (7.8-10.44); Carbon Dioxide 21 mmol/L (23-31); Chloride 100 mmol/L (98-107); Estimated GFR 36; Globulin 2.7 g/dL (2.4-3.5); Glucose 122 mg/dL (83-110); Potassium 4.3 mmol/L (3.5-5.1); Sodium 132 mmol/L (136-145)
[2022-09-08 07:03] LABS: Troponin I 0.026 ng/mL (< 0.028)
[2022-09-08] MEDS: Enoxaparin Sodium 30 MG/0.3 ML SYRINGE SC SCH ×2 (07:33→15:56)
[2022-09-08] MEDS ORDERED: Enoxaparin Sodium 40 MG/0.4 ML SYRINGE SC SCH (09:00)
[2022-09-08] MEDS ORDERED: Furosemide 20 MG/2 ML VIAL SLOW IVP SCH (14:30)
[2022-09-08] MEDS ORDERED: FLU VACC QS2022-23(65YR UP)/PF 240 MCG/0.7 ML SYRINGE IM ONE (17:30)
[2022-09-08] MEDS ORDERED: Metoprolol Tartrate 5 MG/5 ML VIAL IVP SCH ×2 (22:45→23:30)
[2022-09-08 23:19] LABS: Anion Gap 17 mmol/L (10-20); BUN (Urea Nitrogen) 30 mg/dL (9.8-20.1); Calc. Creatinine Clearance 43 mL/min (70-130); Calcium 9.1 mg/dL (7.8-10.44); Carbon Dioxide 21 mmol/L (23-31); Chloride 102 mmol/L (98-107); Estimated GFR 39; Glucose 111 mg/dL (83-110); Magnesium 1.9 mg/dL (1.6-2.6); Potassium 4.5 mmol/L (3.5-5.1); Sodium 135 mmol/L (136-145)
[2022-09-09] MEDS: Morphine 4 MG/ML VIAL SLOW IVP PRN (00:19)
[2022-09-09] MEDS: Ampicillin/Sulbactam 3 GM in Sodium Chloride 0.9% 100 ML IVPB SCH ×4 (01:19→18:01)
[2022-09-09] MEDS ORDERED: Diltiazem 125 MG in Sodium Chloride 0.9% 100 ML IVPB SCH ×2 (02:00→04:45)
[2022-09-09] MEDS: Furosemide 40 MG/4 ML VIAL SLOW IVP SCH ×2 (06:31→16:29)
[2022-09-09 10:00] LABS: ALT (SGPT) 20 U/L (8-55); AST (SGOT) 20 U/L (5-34); Albumin 3.1 g/dL (3.4-4.8); Alkaline Phosphatase 63 U/L (40-110); Anion Gap 18 mmol/L (10-20); Anion Gap 19 mmol/L (10-20); BUN (Urea Nitrogen) 37 mg/dL (9.8-20.1); Bilirubin, Total 0.6 mg/dL (0.2-1.2); Calc. Creatinine Clearance 42 mL/min (70-130); Calc. Creatinine Clearance 43 mL/min (70-130); Calcium 8.8 mg/dL (7.8-10.44); Calcium 8.9 mg/dL (7.8-10.44); Carbon Dioxide 19 mmol/L (23-31); Carbon Dioxide 21 mmol/L (23-31); Chloride 102 mmol/L (98-107); Chloride 103 mmol/L (98-107); Estimated GFR 38; Globulin 2.9 g/dL (2.4-3.5); Glucose 107 mg/dL (83-110); Glucose 114 mg/dL (83-110); Magnesium 2.3 mg/dL (1.6-2.6); Potassium 4.4 mmol/L (3.5-5.1); Potassium 4.5 mmol/L (3.5-5.1); Sodium 135 mmol/L (136-145); Sodium 138 mmol/L (136-145)
[2022-09-09 10:25] LABS: #Eosinphils 0.1 thou/uL (0.0-0.7); #Lymphocytes 0.6 thou/uL (1.20-3.40); #Monocytes 1.4 thou/uL (0.11-0.59); %Basophils 0.2 % (0.0-1.0); %Eosinophils 0.5 % (0.0-10.0); %Lymphocytes 4.3 % (21.0-51.0); %Monocytes 10.4 % (0.0-10.0); %Neutrophils 84.7 % (42.0-75.0); Mean Corpuscular HGB CONC 31.7 g/dL (32.0-36.0); Mean Corpuscular Hemoglobin 34.1 pg (27.0-31.0); Mean Platelet Volume 6.8 fL (7.4-10.4); Platelet Count 259 10x3/uL (130-400); RBC Distribution Width 12.4 % (11.5-14.5); Red Blood Cell (RBC) Count 3.53 mill/uL (4.20-5.40)
[2022-09-09 10:28] LABS: Bite Cells SLIGHT = 2-5 cells (100X) (0-1/hpf); Hypochromia SLIGHT = 6-15 cells (100X) (0-5/hpf); MDiff Complete? YES; Macrocytosis SLIGHT = 6-15 cells (100X) (0-5/hpf); Platelet Morphology Comment Appears Adequate; Polychromasia SLIGHT = 2-3 cells (100X) (0-2/hpf); Tear Drops SLIGHT = 2-5 cells (100X) (0-1/hpf)
[2022-09-09] MEDS ORDERED: Digoxin 0.5 MG/2 ML AMP SLOW IVP SCH (10:45)
[2022-09-09] MEDS ORDERED: Metoprolol Tartrate 25 MG TAB PO SCH (11:00)
[2022-09-09] MEDS ORDERED: Acetaminophen 500 MG TAB PO SCH (11:00)
[2022-09-09] MEDS ORDERED: Acetaminophen/Codeine 30-300mg Tablet PO PRN (11:02)
[2022-09-09] MEDS ORDERED: Methocarbamol 500 MG TAB PO PRN (11:02)
[2022-09-09] MEDS ORDERED: Lidocaine 5% Patch TD SCH (11:15)
[2022-09-09] MEDS: Pregabalin 50 MG CAP PO SCH (16:57)
[2022-09-09] MEDS: Acetaminophen 500 MG TAB PO SCH (20:56)
[2022-09-09] MEDS: Metoprolol Tartrate 25 MG TAB PO SCH (20:58)
[2022-09-09] MEDS: Transdermal Patch Removal TOP SCH (21:11)
[2022-09-10] MEDS: Ampicillin/Sulbactam 3 GM in Sodium Chloride 0.9% 100 ML IVPB SCH ×4 (00:08→17:36)
[2022-09-10 06:06] LABS: #Eosinphils 0.4 thou/uL (0.0-0.7); #Lymphocytes 0.7 thou/uL (1.20-3.40); #Monocytes 1.3 thou/uL (0.11-0.59); #Neutrophils 8.8 thou/uL (1.40-6.50); %Basophils 0.3 % (0.0-1.0); %Eosinophils 3.2 % (0.0-10.0); %Lymphocytes 6.6 % (21.0-51.0); %Monocytes 11.7 % (0.0-10.0); %Neutrophils 78.2 % (42.0-75.0); Hemoglobin 11.5 g/dL (12.0-16.0); Mean Corpuscular HGB CONC 32.3 g/dL (32.0-36.0); Mean Corpuscular Hemoglobin 33.6 pg (27.0-31.0); Mean Platelet Volume 6.8 fL (7.4-10.4); Platelet Count 269 10x3/uL (130-400); RBC Distribution Width 12.3 % (11.5-14.5); Red Blood Cell (RBC) Count 3.44 mill/uL (4.20-5.40); White Blood Cell (WBC) Count 11.2 10x3/uL (4.8-10.8)
[2022-09-10] MEDS: Morphine 4 MG/ML VIAL SLOW IVP PRN ×2 (06:16→21:36)
[2022-09-10 06:23] LABS: Anion Gap 14 mmol/L (10-20); BUN (Urea Nitrogen) 48 mg/dL (9.8-20.1); Calc. Creatinine Clearance 40 mL/min (70-130); Carbon Dioxide 26 mmol/L (23-31); Chloride 103 mmol/L (98-107); Estimated GFR 36; Glucose 137 mg/dL (83-110); Magnesium 2.5 mg/dL (1.6-2.6); Potassium 4.3 mmol/L (3.5-5.1); Sodium 139 mmol/L (136-145)
[2022-09-10] MEDS: Furosemide 40 MG/4 ML VIAL SLOW IVP SCH (06:30)
[2022-09-10] MEDS: Lidocaine 5% Patch TD SCH (08:34)
[2022-09-10] MEDS: Acetaminophen 500 MG TAB PO SCH ×3 (08:34→21:33)
[2022-09-10] MEDS: Metoprolol Tartrate 25 MG TAB PO SCH ×2 (08:34→21:34)
[2022-09-10] MEDS ORDERED: Metoprolol Tartrate 5 MG/5 ML VIAL IVP PRN (09:15)
[2022-09-10] MEDS ORDERED: Furosemide 40 MG/4 ML VIAL SLOW IVP SCH (14:00)
[2022-09-10] MEDS: Pregabalin 50 MG CAP PO SCH (21:35)
[2022-09-10] MEDS: Transdermal Patch Removal TOP SCH (21:36)
[2022-09-11] MEDS: Ampicillin/Sulbactam 3 GM in Sodium Chloride 0.9% 100 ML IVPB SCH ×3 (00:01→12:10)
[2022-09-11 05:55] LABS: Anion Gap 14 mmol/L (10-20); BUN (Urea Nitrogen) 50 mg/dL (9.8-20.1); Calc. Creatinine Clearance 35 mL/min (70-130); Calcium 9.2 mg/dL (7.8-10.44); Carbon Dioxide 25 mmol/L (23-31); Chloride 104 mmol/L (98-107); Estimated GFR 35; Glucose 102 mg/dL (83-110); Magnesium 2.4 mg/dL (1.6-2.6); Potassium 4.2 mmol/L (3.5-5.1); Sodium 139 mmol/L (136-145)
[2022-09-11 06:00] LABS: #Eosinphils 0.4 thou/uL (0.0-0.7); #Monocytes 0.8 thou/uL (0.11-0.59); #Neutrophils 7.8 thou/uL (1.40-6.50); %Basophils 0.4 % (0.0-1.0); %Eosinophils 4.4 % (0.0-10.0); %Lymphocytes 9.7 % (21.0-51.0); %Monocytes 8.1 % (0.0-10.0); %Neutrophils 77.4 % (42.0-75.0); Hemoglobin 11.3 g/dL (12.0-16.0); MDiff Complete? YES; Macrocytosis SLIGHT = 6-15 cells (100X) (0-5/hpf); Mean Corpuscular HGB CONC 31.9 g/dL (32.0-36.0); Mean Corpuscular Hemoglobin 33.6 pg (27.0-31.0); Mean Platelet Volume 6.8 fL (7.4-10.4); Platelet Count 286 10x3/uL (130-400); RBC Distribution Width 12.3 % (11.5-14.5); Red Blood Cell (RBC) Count 3.36 mill/uL (4.20-5.40); White Blood Cell (WBC) Count 10.1 10x3/uL (4.8-10.8)
[2022-09-11] MEDS ORDERED: Senokot S 8.6-50 MG TAB PO SCH ×2 (06:00→09:00)
[2022-09-11] MEDS ORDERED: Digoxin 0.5 MG/2 ML AMP SLOW IVP SCH (09:15)
[2022-09-11] MEDS: Lidocaine 5% Patch TD SCH (09:33)
[2022-09-11] MEDS: Acetaminophen 500 MG TAB PO SCH ×2 (09:34→16:25)
[2022-09-11] MEDS: Metoprolol Tartrate 25 MG TAB PO SCH (09:35)
[2022-09-11] MEDS ORDERED: HYDROcodone/Acetaminophen 5/325 mg Tablet PO PRN (11:44)
[2022-09-11 11:47] VITALS: TEMP 98.2
[2022-09-11 16:09] VITALS: BP 116/55
== END 2022-09-11 16:25 | disposition hospice, home (50) | DRG 871 ==
LOC: ERS 19:22 → ERHOLD 22:22 → NEURO 09-08 14:35
PROVIDERS: ADMIT Internal Medicine; ATTEND Family Medicine
DX: A41.9 Sepsis, unspecified organism (principal); I50.33 Acute on chronic diastolic (congestive) heart failure; J69.0 Pneumonitis due to inhalation of food and vomit; J96.01 Acute respiratory failure with hypoxia; N18.4 Chronic kidney disease, stage 4 (severe); I82.619 Acute embolism and thrombosis of superficial veins of unspecified upper extremity; I69.354 Hemiplegia and hemiparesis following cerebral infarction affecting left non-dominant side; I13.0 Hypertensive heart and chronic kidney disease with heart failure and stage 1 through stage 4 chronic kidney disease, or unspecified chronic kidney disease; Z96.651 Presence of right artificial knee joint; I34.0 Nonrheumatic mitral (valve) insufficiency; I48.91 Unspecified atrial fibrillation; Z66 Do not resuscitate; Z51.5 Encounter for palliative care; Z79.899 Other long term (current) drug therapy; Z88.2 Allergy status to sulfonamides
CPT/HCPCS: 36415; 71045; 80048; 80053; 83605; 83690; 83735; 83880; 84145; 84484; 85025; 87040; 93005; 93010; 93306; 96374; 96375; J0295; J0696; J1160; J1940; J2270; J3475; J3490